=== PATIENT | female | born 1990 | race Caucasian/White ===

== ENCOUNTER → 2021-07-15 14:01 | Outpatient (CLI) | payer MEDICAID, SELFPAY ==
[2021-07-15 14:38] LABS: Absolute Lymphocyte Count 2.06 X10^3/uL (0.83-4.51); Absolute Neutrophil Count 9.7 X10^3/uL (2.0-7.7); Basophil# 0.05 X10^3/uL; Basophil% 0.4 % (0-1); Eosinophil# 0.16 X10^3/uL; Eosinophils% 1.3 % (0-5); Hematocrit 37.5 % (37-47); Hemoglobin 13.2 g/dL (12.0-15.0); Lymphocyte # 2.06 X10^3/ul (0.83-4.51); Lymphocyte % 16.2 % (19-41); Mean Corp Hgb Conc 35.2 g/dL (32-36); Mean Corpuscular Hgb 30.3 pg (27.0-32.0); Mean Corpuscular Volume 86.2 fL (81-99); Mean Platelet Vol. 10.9 fl (6.2-12.0); Monocyte# 0.67 X10^3/uL; Monocyte% 5.3 % (0-10); NRBC Flagged by Analyzer 0 % (0-5); Neutrophil # 9.74 X10^3/uL (2.7-7.7); Neutrophil % 76.4 % (47-70); Platelet Count 209 K/mm3 (150-450); RBC Distribution Width CV 12.2 % (11.6-14.6); RBC Distribution Width SD 38.4 fl (35.1-43.9); Red Blood Count 4.35 M/mm3 (4.2-5.4); White Blood Count 12.7 K/mm3 (4.4-11.0)
[2021-07-15 15:29] LABS: NATERA MAILED SPECIMEN
[2021-07-15 15:54] LABS: Amphetamine Urine VISTA NEGATIVE (<1000 ng/mL); Barbiturate Urine VISTA NEGATIVE (< 200 ng/mL); Benzodiazepine Urine VISTA NEGATIVE (< 200 ng/mL); Cocaine Urine VISTA NEGATIVE (< 300 ng/mL); Ecstacy Urine VISTA NEGATIVE (< 500 ng/mL); Methadone Urine VISTA NEGATIVE (< 300 ng/mL); PCP Urine VISTA NEGATIVE (< 25 ng/mL); THC Urine VISTA NEGATIVE (< 50 ng/mL); Vista UDS pH Range 5
[2021-07-15 16:06] LABS: HIV - WCH Non-Reactive (Nonreactive); Hepatitis B Surface Antigen Non-Reactive (Nonreactive); Hepatitis C Antibody Non-Reactive (Nonreactive); Syphilis Antibodies Non-reactive
[2021-07-19 13:07] LABS: Chlamydia By Nucleic Acid AMP Negative (Negative)
[2021-07-19 13:43] LABS: Gonococcus By Nucleic Acid AMP Negative (Negative)
[2021-07-23 14:26] LABS: HPV Reflexed? NOT INDICATED
== END ==
PROVIDERS: PCP Internal Medicine; Referring Provider Obstetrics & Gynecology; Visit Provider Obstetrics & Gynecology
DX: Z34.81 Encounter for supervision of other normal pregnancy, first trimester (principal); Z31.430 Encounter of female for testing for genetic disease carrier status for procreative management
CPT/HCPCS: 36415; 80307; 85025; 86703; 86762; 86780; 86803; 86850; 86900; 86901; 87086; 87088; 87340; 87491; 87591; 88175; G0145

== ENCOUNTER 2021-08-25 14:17 | Outpatient (CLI) | payer MEDICAID, SELFPAY | END 2021-08-25 23:59 | disposition short-term general hospital (02) | PROVIDERS: PCP Internal Medicine; Visit Provider Obstetrics & Gynecology | DX: O26.899 Other specified pregnancy related conditions, unspecified trimester (principal); N89.8 Other specified noninflammatory disorders of vagina; Z3A.00 Weeks of gestation of pregnancy not specified | CPT/HCPCS: 87070; 87086; 87088; 87205 ==

== ENCOUNTER 2021-09-08 17:13 | Outpatient (CLI) | payer MEDICAID, SELFPAY | END 2021-09-08 23:59 | disposition short-term general hospital (02) | LOC: LABSPEC 17:13 | PROVIDERS: PCP Internal Medicine; Visit Provider Obstetrics & Gynecology | DX: N89.8 Other specified noninflammatory disorders of vagina (principal) | CPT/HCPCS: 87070; 87205 ==

== ENCOUNTER 2021-09-23 12:48 | Outpatient (CLI) | payer MEDICAID, SELFPAY | END 2021-09-23 23:59 | disposition short-term general hospital (02) | LOC: LABSPEC 12:49 | PROVIDERS: PCP Internal Medicine; Visit Provider Nurse Practitioner Women's Health | DX: O23.40 Unspecified infection of urinary tract in pregnancy, unspecified trimester (principal) | CPT/HCPCS: 87086 ==

== ENCOUNTER 2021-10-27 12:27 | Outpatient (CLI) | payer MEDICAID, SELFPAY ==
[2021-10-27 13:43] LABS: Absolute Neutrophil Count 6.9 X10^3/uL (2.0-7.7); Basophil# 0.03 X10^3/uL; Basophil% 0.3 % (0-1); Eosinophils% 1.1 % (0-5); Hemoglobin 11.5 g/dL (12.0-15.0); Mean Corp Hgb Conc 33.8 g/dL (32-36); Mean Corpuscular Hgb 30.9 pg (27.0-32.0); Mean Corpuscular Volume 91.4 fL (81-99); Mean Platelet Vol. 11.3 fl (6.2-12.0); Monocyte# 0.78 X10^3/uL; Monocyte% 8.3 % (0-10); NRBC Flagged by Analyzer 0 % (0-5); Neutrophil % 73.9 % (47-70); Platelet Count 150 K/mm3 (150-450); RBC Distribution Width CV 12.3 % (11.6-14.6); RBC Distribution Width SD 41.1 fl (35.1-43.9); Red Blood Count 3.72 M/mm3 (4.2-5.4); White Blood Count 9.4 K/mm3 (4.4-11.0)
[2021-10-27 14:10] LABS: Glucose Challenge Gest 1H 50g 109 mg/dL (70-140)
== END 2021-10-27 23:59 | disposition home or self-care (01) ==
LOC: PAVLAB 12:28
PROVIDERS: PCP Internal Medicine; Referring Provider Nurse Practitioner Women's Health; Visit Provider Nurse Practitioner Women's Health
DX: Z34.92 Encounter for supervision of normal pregnancy, unspecified, second trimester (principal); Z13.1 Encounter for screening for diabetes mellitus
CPT/HCPCS: 36415; 82950; 85025

== ENCOUNTER 2021-12-08 09:00 | Outpatient (CLI) | payer MEDICAID, SELFPAY ==
--- NOTE | 2021-12-08 09:03 | US_ITS ---
STUDY: SECOND AND THIRD TRIMESTER OBSTETRICAL ULTRASOUND - LIMITED REASON FOR EXAM: Female, 31 years old. growth @ 32 and 36 weeks -- standing order PRIOR ULTRASOUND: Prior comparison studies are not available for review at this time. TECHNIQUE: Transabdominal TECHNICAL QUALITY: Adequate. FINDINGS: There is a single intrauterine fetus. The fetus is in a cephalic presentation. There is demonstrated cardiac activity with a heart rate of 140 bpm. There is a normal amniotic fluid volume. The largest amniotic fluid pocket measures 5.9 cm. The amniotic fluid index (FIGUEROA) is 17.4 cm. The placenta is fundal in location. There are Grade 1 placental changes. The cervix measures cm in length: 3.4. BIOMETRY: BPD: 79 mm: 31 weeks, 4 days HC: 296 mm: 32 weeks, 4 days AC: 283 mm: 32 weeks, 2 days FL: 61 mm: 31 weeks, 5 days CI: 76 FL/AC: 22 FL/BPD: 78 HC/AC: 1.05 age by current US: 32 weeks, 1 days. CHARITY by current US: 6.12.22. Estimated weight: 1918 grams, +/- 288 grams, 45 %. Age by LMP: 32 weeks, 0 days. CHARITY by LMP: 6.13.22. US/OB Limited With Biometrics IMPRESSION: There is a single live intrauterine with a heart rate of 140 bpm. age by current US: 32 weeks, 1 days. CHARITY by current US: 6.12.22. Estimated weight: 1918 grams, +/- 288 grams, 45 %. Electronically Signed: Andrés Headley MD at 20:43 EDT ,
== END 2021-12-08 23:59 | disposition home or self-care (01) ==
LOC: US 09:02
PROVIDERS: PCP Internal Medicine; Visit Provider Nurse Practitioner Women's Health
DX: O98.519 Other viral diseases complicating pregnancy, unspecified trimester (principal); U07.1 COVID-19; Z3A.00 Weeks of gestation of pregnancy not specified
CPT/HCPCS: 76816

== ENCOUNTER → 2022-01-05 | Outpatient (CLI) | payer MEDICAID, SELFPAY ==
--- NOTE | 2022-01-05 12:36 | US_ITS ---
STUDY: SECOND AND THIRD TRIMESTER OBSTETRICAL ULTRASOUND - LIMITED REASON FOR EXAM: Female, 31 years old. GROWTH PRIOR ULTRASOUND: 4.18.22. TECHNIQUE: Transabdominal TECHNICAL QUALITY: Adequate. FINDINGS: There is a single intrauterine fetus. The fetus is in a cephalic presentation. There is demonstrated cardiac activity with a heart rate of 144 bpm. There is a normal amniotic fluid volume. The largest amniotic fluid pocket measures 4.2 cm. The amniotic fluid index (FIGUEROA) is 12.7 cm. The placenta is fundal in location. There are Grade 2 placental changes. The cervix is obscured by overlying bowel gas and cannot be identified. . BIOMETRY: BPD: 82 mm: 33 weeks, 0 days HC: 307 mm: 34 weeks, 1 days AC: 341 mm: 37 weeks, 6 days FL: 66 mm: 34 weeks, 1 days CI: 77 FL/AC: 20 FL/BPD: 81 HC/AC: .9 age by current US: 34 weeks, 4 days. CHARITY by current US: 6.23.22. Estimated weight: 2889 grams, +/- 433 grams, 58 %. age by prior US: 36 weeks, 1 days. CHARITY by prior US: 6.2.22. Age by LMP: 36 weeks, 0 days. CHARITY by LMP: 6.13.22. US/OB Limited With Biometrics IMPRESSION: There is a single live intrauterine with a heart rate of 144 bpm. age by current US: 34 weeks, 4 days. CHARITY by current US: 6.23.22. Estimated weight: 2889 grams, +/- 433 grams, 58 %. Electronically Signed: Andrés Headley MD at 17:54 EDT ,
== END | disposition home or self-care (01) ==
LOC: US 12:32
PROVIDERS: PCP Internal Medicine; Visit Provider Nurse Practitioner Women's Health
DX: Z34.93 Encounter for supervision of normal pregnancy, unspecified, third trimester (principal)
CPT/HCPCS: 76816; 87081

== ENCOUNTER 2022-01-24 15:10 | Outpatient (CLI) | payer MEDICAID, SELFPAY ==
[2022-01-24 15:28] VITALS: BP 122/84; PULSE 96; TEMP 36.9
[2022-01-24 15:29] VITALS: BMI 26.9
--- NOTE | 2022-01-24 21:51 | OB.TRI.NOTE ---
HPI - General HPI Narrative SOPHIA ALLEN, is a 31 y/o @ 38 weeks who presents to L& with contractions. She denies loss of fluid, vaginal bleeding, or dec fm. PFSH PFSH Medical History (Updated 01/30/22 @ 14:[address] 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) Recurrent UTI Supervision of normal UTI in Home Medications multivitamin no.47-iron fum 27 mg-folate no.1 1 mg-dha 300 mg capsule 1 cap PO DAILY 07/15/21 [History Last Taken 01/24/22 10:00 1 cap] ibuprofen 800 mg PO Q8H PRN 7 Days #30 tab 01/25/22 [Rx Last Taken Unknown] sertraline [Zoloft] 50 mg PO DAILY 01/25/22 [History Last Taken 01/24/22] Allergy/AdvReac Type Severity Reaction Status Date / Time No Known Allergies Allergy Verified 01/21/22 10:56 Family History Grandmother Cancer Mother Thyroid disorder Surgical History H/O breast augmentation H/O lithotripsy Social History adopted: No current occupational status: employed current occupation: [employer] pets and animals: Yes Smoking Status: Never smoker second hand exposure: No alcohol intake: current details: not while substance use type: does not use seatbelt use: always do you feel safe at home: Yes additional social history: BF- Tristan History 2 Elective abortions 1 Hx Para 0 Spontaneous abortions Hx # Term Pregnancies Ectopic pregnancies Hx # Pregnancies Multiple births # of living children 1 Past Pregnancies Del. Date Name GA/Weeks Outcome Route Bth Weight Infant Gen Labor Lgth Anesthesia Del Locatn Provider FOB 06/05/22 Daryl 38 live - full term vacuum Male epidural [facility] Jeanette Kumar FOB not involved/Tristan Delivery Date: 01/25/22 1st degree laceration, Padmini Wilburn Constitutional Constitutional: Reports systems reviewed and no addt'l complaints, except as documented Gastrointestinal Gastrointestinal: Denies bloating, constipation, cramping, diarrhea, nausea or vomiting Genitourinary Genitourinary: Reports other Details: Denies vaginal odor, vaginal bleeding, or vaginal discharge ; Denies difficulty urinating or flank pain Physical Exam HEENT normocephalic Resp normal respiratory effort and normal air movement no CVA tenderness Extremity normal to inspection General Extremity: edema bilateral (trace ) NST FHR Rate Baby A Baseline: 150 Variability:: Moderate Accelerations:: 15 x 15 Decelerations:: None NST Reactive:: Yes FHR Category:: Category I Assessment & Plan (1) False labor after 37 completed weeks of gestation: PLAN: cx unchanged after monitoring x 1 hr dc to home with labor precautions. return to office this week Charges/Coding Multi Select Codes Visit Charges Office Visit/Consults: 75448 OV L3 Est Urinary/Genital Urinary/Genital CPT Codes: 34933-60 non-stress test Interp
== END 2022-01-24 16:55 | disposition home or self-care (01) ==
LOC: WPOUT 15:20 → WP 15:21
PROVIDERS: PCP Internal Medicine; Visit Provider Obstetrics & Gynecology
DX: O47.1 False labor at or after 37 completed weeks of gestation (principal); Z3A.38 38 weeks gestation of pregnancy; O99.343 Other mental disorders complicating pregnancy, third trimester; F41.9 Anxiety disorder, unspecified; F32.A Depression, unspecified; Z86.16 Personal history of COVID-19; O99.613 Diseases of the digestive system complicating pregnancy, third trimester; K90.0 Celiac disease; Z87.440 Personal history of urinary (tract) infections; Z87.442 Personal history of urinary calculi; Z79.899 Other long term (current) drug therapy
CPT/HCPCS: 59050 ×2; G0378 ×2; 59025; 99218

== ENCOUNTER 2022-01-25 02:38 | Inpatient (IN) | payer MEDICAID, SELFPAY ==
[2022-01-25] VITALS (45 sets, daily range): BP systolic 99–133; BP diastolic 55–85; PULSE 59–91; RESP 15–18; TEMP 36.1–36.9; O2SAT 95–100; BMI 27.1
[2022-01-25 02:35] LABS: ROM Internal Control Test YES-OK TO RESULT pt. (Internal QC)
[2022-01-25 02:36] LABS: ROM Patient Test POSITIVE (Negative)
[2022-01-25] MEDS: Lactated Ringers 1,000 ML 50 ML IV (03:05)
[2022-01-25] MEDS: Lactated Ringers 500 ML 999 ML IV ×2 (03:20→09:11)
[2022-01-25 03:28] LABS: Absolute Lymphocyte Count 2.34 X10^3/uL (0.83-4.51); Basophil# 0.04 X10^3/uL; Basophil% 0.4 % (0-1); Eosinophil# 0.09 X10^3/uL; Eosinophils% 0.8 % (0-5); Hematocrit 35.7 % (37-47); Hemoglobin 11.5 g/dL (12.0-15.0); Lymphocyte # 2.34 X10^3/ul (0.83-4.51); Lymphocyte % 20.6 % (19-41); Mean Corp Hgb Conc 32.2 g/dL (32-36); Mean Corpuscular Hgb 28.3 pg (27.0-32.0); Mean Corpuscular Volume 87.9 fL (81-99); Mean Platelet Vol. 13.8 fl (6.2-12.0); Monocyte# 0.83 X10^3/uL; Monocyte% 7.3 % (0-10); NRBC Flagged by Analyzer 0 % (0-5); Neutrophil # 8.01 X10^3/uL (2.7-7.7); Neutrophil % 70.3 % (47-70); Platelet Count 116 K/mm3 (150-450); RBC Distribution Width CV 13.2 % (11.6-14.6); RBC Distribution Width SD 42.3 fl (35.1-43.9); Red Blood Count 4.06 M/mm3 (4.2-5.4); White Blood Count 11.4 K/mm3 (4.4-11.0)
[2022-01-25] MEDS: fentaNYL-bupivacaine (epidural) 100 ML BAG EPIDURAL ×2 (04:31→10:04)
[2022-01-25] MEDS: Lactated Ringers 1,000 ML 200 ML IV (06:45)
--- NOTE | 2022-01-25 08:45 | HP.PCM.OB_ITS ---
HPI - General General Date of Admission: 01/25/22 HPI Narrative SOPHIA ALLEN, is a 31 y/o @ 38 weeks 6 days who presents to L&D with ROM around 1 am. she states that her water broke at 12:00 last night. She is currently comfortable with an epidural and completely dilated. She has started pushing with the nurse. 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) Recurrent UTI Home Medications multivitamin no.47-iron fum 27 mg-folate no.1 1 mg-dha 300 mg capsule 1 cap PO DAILY 07/15/21 [History Last Taken 01/24/22 10:00 1 cap] aspirin 81 mg chewable tablet 81 mg PO DAILY 09/08/21 [History Last Taken 01/24/22] ondansetron HCl 4 mg tablet 4 mg PO Q8H PRN #30 tab 12/24/21 [Rx Last Taken Unknown] sertraline [Zoloft] 50 mg PO DAILY 01/25/22 [History Last Taken 01/24/22] Allergy/AdvReac Type Severity Reaction Status Date / Time No Known Allergies Allergy Verified 01/21/22 10:56 Family History Grandmother Cancer Mother Thyroid disorder Surgical History H/O breast augmentation H/O lithotripsy Social History adopted: No current occupational status: employed current occupation: [employer] pets and animals: Yes Smoking Status: Never smoker second hand exposure: No alcohol intake: current details: not while substance use type: does not use seatbelt use: always do you feel safe at home: Yes additional social history: [facility] [place] History 2 Elective abortions 1 Hx Para 0 Spontaneous abortions Hx # Term Pregnancies Ectopic pregnancies Hx # Pregnancies Multiple births # of living children 0 Visit Details Expected Delivery Route/Plan Labor Preferences- CB/BF classes: scheduled labor support person: Monica(mom) labor intervention preferences: [] pain management options preferred: limited intervention but epidural ok cut cord/dad catch: maybe : yes PP control planned: discussed discussed possible routes of delivery and associated risks: [] special requests: [] Plans Covid status: positive in the beginning of . counseled regarding risk of covid in vs vaccination and declined vaccination Flu vaccine: declined. Tdap vaccine: declines Rhogam: NA LARC form signed: yes movement and labor precautions reviewed. Problem list reviewed and updated with the most current plan of care details and appropriate orders placed. Relevant counseling for the gestational age provided. Continue routine care and follow up unless otherwise noted in visit notes/problem list details OB Flowsheet Initial Weight: 112 lb Date -?-?-?--?-?-?-?-?-?-?-?-?- EGA Weight BP Urine Prot -?-?-?-?-?-?-?-?-?-?-?-?- Glucose FHR FuHt Pres Dilation -?-?-?-?-?-?-?-?-?-?-?-?- Effaced St Visit Note 07/15/21 -?-?-?-?-?-?-?-?-?-?-?-?- 11w 1d 118 lb (+6 lb) 122/82 -?-?-?-?-?-?-?-?-?-?-?-?- -?-?-?-?-?-?-?-?-?-?-?-?- SM- CRL cons wit h LMP 08/11/21 -?-?-?-?-?-?-?-?-?-?-?-?- 15w 0d 121 lb 6 oz (+9 lb 6 oz) 110/80 Negative -?-?-?-?-?-?-?-?-?-?-?-?- Negative 162 -?-?-?-?-?-?-?-?-?-?-?-?- MH-had light spo tting X 1 2 wk ago. None since. Feeling more depressed, wants to sleep all the time. Rx zoloft sent. Declines counseling. Lives with mom and aware of how she is feeling. MFM US ordered. 08/25/21 -?-?-?-?-?-?-?-?-?-?-?-?- 17w 0d 122 lb (+10 lb) 102/84 -?-?-?-?-?-?-?-?-?-?-?-?- Negative 150 -?-?-?-?-?-?-?-?-?-?-?-?- SM- some crampin g and occasional spotting. SM- some cramping and occasi onal spotting. on exam visible yeast and bv suspected 09/08/21 -?-?-?-?-?-?-?-?-?-?-?-?- 19w 0d 126 lb (+14 lb) 102/76 Negative -?-?-?-?-?-?-?-?-?-?-?-?- Negative 145 19 -?-?-?-?-?-?-?-?-?-?-?-?- SM- no vb lof so me discarge checked for yeast infection today 09/23/21 -?-?-?-?-?-?-?-?-?-?-?-?- 21w 1d 127 lb 4 oz (+15 lb 4 oz) 2+ -?-?-?-?-?-?-?-?-?-?-?-?- Negative -?-?-?-?-?-?-?-?-?-?-?-?- 10/06/21 -?-?-?-?-?-?-?-?-?-?-?-?- 23w 0d 129 lb 6 oz (+17 lb 6 oz) 108/70 Negative -?-?-?-?-?-?-?-?-?-?-?-?- Negative 143 -?-?-?-?-?-?-?-?-?-?-?-?- -No VB, LOF. Seen for hematuria 09/23. Thinks passed stone 09/26 and feels fine since and urine clear. Urine culture on 09/23 was negative. echo is 10/16. Growth US 32 and 36 wk at [facility] ordered. 28 wk labs ordered. Anxiety stable 11/03/21 -?-?-?-?-?-?-?-?-?-?-?-?- 27w 0d 137 lb 4 oz (+25 lb 4 oz) 120/80 Negative -?-?-?-?-?-?-?-?-?-?-?-?- Negative 140 27 -?-?-?-?-?-?-?-?-?-?-?-?- - no vb lof go od fm no reuglar ctx 11/26/21 -?-?-?-?-?-?-?-?-?-?-?-?- 30w 2d 139 lb 6 oz (+27 lb 6 oz) 110/70 Negative -?-?-?-?-?-?-?-?-?-?-?-?- Negative 148 29 -?-?-?-?-?-?-?-?-?-?-?-?- -No VB, LOF. G ood FM. FOB no longer involved. She is doing ok with that. Her mom is very supportive. 12/08/21 -?-?-?-?-?-?-?-?-?-?-?-?- 32w 0d 143 lb 8 oz (+31 lb 8 oz) 112/64 Negative -?-?-?-?-?-?-?-?-?-?-?-?- Negative 140 32 -?-?-?-?-?-?-?-?-?-?-?-?- SM- no vb lof go od fm no regular ctx 12/24/21 -?-?-?-?-?-?-?-?-?-?-?-?- 34w 2d 144 lb 4 oz (+32 lb 4 oz) 130/88 Negative -?-?-?-?-?-?-?-?-?-?-?-?- Negative 143 34 Cephalic -?-?-?-?-?-?-?-?-?-?-?-?- JV- pt complains of period like cramping and nausea. cx checked and is closed. PTL precautions discussed. next growth scan scheduled for 01/05. She had one 2 weeks ago showing 45th%. 01/05/22 -?-?-?-?-?-?-?-?-?-?-?-?- 36w 0d 146 lb (+34 lb) 106/72 Negative -?-?-?-?-?-?-?-?-?-?-?-?- Negative 140 36 Cephalic 1 -?-?-?-?-?-?-?-?-?-?-?-?- 60 -2 SM- no vb lof good fm no reuglar ctx gbs done us today 01/14/22 -?-?-?-?-?-?-?-?-?-?-?-?- 37w 2d 149 lb 8 oz (+37 lb 8 oz) 127/83 Negative -?-?-?-?-?-?-?-?--?-?-?-?- Negative 147 37 Cephalic 2 -?-?-?-?-?-?-?-?-?-?-?-?- 70 -2 JV- no lof , vaginal bleeding, or dec fm. labor precautions discussed. GBS negative. 01/21/22 -?-?-?-?-?-?-?-?-?-?-?-?- 38w 2d 153 lb (+41 lb) 120/86 Negative -?-?-?-?-?-?-?-?-?-?-?-?- Negative 145 38 Cephalic 2 -?-?-?-?-?-?-?-?-?-?-?-?- 80 -2 JV- no lof , vaginal bleeding, or dec fm. pt is becoming frustrated and tired of being she is inquiring about IOL 01/25/22 -?-?-?-?-?-?-?-?-?-?-?-?- 38w 6d 153 lb (+41 lb) 129/58 133/85 115/81 114/74 105/66 99/67 106/72 110/72 106/71 112/69 103/68 105/69 101/62 104/70 115/58 -?-?-?-?-?-?-?-?-?-?-?-?- -?-?-?-?-?-?-?-?-?-?-?-?- ROS Constitutional Constitutional: Denies change in weight, fatigue, fever(s), headache(s), poor appetite or weakness Eyes Eyes: Denies blurry vision, change in vision, seeing flashes or spots in vision ENT HEENT: Denies dizziness, headache(s), loss taste/smell or sore throat Cardiovascular Cardiovascular: Denies chest pain, dizziness, dyspnea, irregular heart rhythm, leg edema, palpitations, rapid heart rate or vomiting Respiratory/Chest Respiratory/Chest: Denies chest tightness, cough, dyspnea or breast pain Gastrointestinal Gastrointestinal: Denies abdominal pain, anorexia, constipation, cramping, diarrhea, hemorrhoids, vomiting or weight changes Genitourinary Genitourinary: Denies dysuria, flank pain, genital lesions, genital pain, urinary frequency or urinary urgency Musculoskeletal Musculoskeletal: Denies back pain, difficulty walking, joint pain, limited range of motion, muscle cramps or numbness Integumentary Integumentary: Denies lesions or unusual bruising Neurologic Neurologic: Denies abnormal movements, abnormal speech, dizziness, numbness, seizure-like activity or syncope Psychiatric Psychiatric: Denies anxiety, behavioral changes, change in appetite, change in libido, cognitive impairment, confusion, depression, difficulty concentrating, hallucinations or suicidal thoughts Endocrine Endocrinology: Denies excessive sweating, polydipsia or polyuria Hematologic/Lymphatic Hematologic/Lymphatic: Denies easy bleeding, easy bruising or lymphadenopathy Allergic/Immunologic Allergic/Immunologic: Denies itchy eyes, lip swelling, seasonal rhinorrhea, rhinitis, throat swelling, tongue swelling, eczemia, wheezing or asthma Vital Signs Vital Signs Vital Signs: 01/25/22 01:43 01/25/22 01:45 01/25/22 01:51 Temperature 97.2 F L Temperature Source Temporal Pulse Rate 87 79 Blood Pressure 129/58 H BP Systolic 129 BP Diastolic 58 Pulse Ox 98 01/25/22 03:15 01/25/22 04:09 01/25/22 04:14 Temperature Temperature Source Pulse Rate 64 73 75 Blood Pressure 133/85 H BP Systolic 133 BP Diastolic 85 Pulse Ox 99 100 01/25/22 04:15 01/25/22 04:19 01/25/22 04:20 Temperature Temperature Source Pulse Rate 71 75 Blood Pressure 115/81 H 114/74 BP Systolic 115 114 BP Diastolic 81 74 Pulse Ox 100 01/25/22 04:24 01/25/22 04:29 01/25/22 04:30 Temperature Temperature Source Pulse Rate 70 74 72 Blood Pressure 105/66 BP Systolic 105 BP Diastolic 66 Pulse Ox 99 99 01/25/22 04:31 01/25/22 04:34 01/25/22 04:39 Temperature Temperature Source Pulse Rate 82 75 78 Blood Pressure 99/67 106/72 BP Systolic 99 106 BP Diastolic 67 72 Pulse Ox 99 99 01/25/22 04:41 01/25/22 04:44 01/25/22 04:49 Temperature Temperature Source Pulse Rate 67 73 68 Blood Pressure 110/72 106/71 BP Systolic 110 106 BP Diastolic 72 71 Pulse Ox 100 100 01/25/22 04:50 01/25/22 04:54 01/25/22 04:59 Temperature Temperature Source Pulse Rate 65 65 59 L Blood Pressure 112/69 103/68 105/69 BP Systolic 112 103 105 BP Diastolic 69 68 69 Pulse Ox 100 100 01/25/22 05:35 01/25/22 07:17 01/25/22 07:30 Temperature 97.4 F L Temperature Source Temporal Pulse Rate 66 68 Blood Pressure 101/62 104/70 BP Systolic 101 104 BP Diastolic 62 70 Pulse Ox 99 01/25/22 07:31 01/25/22 08:22 Temperature 98.2 F Temperature Source Temporal Pulse Rate 76 85 Blood Pressure 115/58 L BP Systolic 115 BP Diastolic 58 Pulse Ox 99 95 Weight Weight: 153 lb Body Mass Index (BMI) 27.1 Physical Exam Const alert, oriented x3, no apparent distress and healthy appearing General Appearance: cooperative; Negative for anxious HEENT normocephalic Face and Sinus: normal facial exam Eyes EOMs intact bilaterally and no scleral icterus General Eye: normal appearance of both eyes Neck full ROM and supple Lymph Lymphatic: no lymphadenopathy noted Chest Chest: abnormal inspection of the chest Resp normal respiratory effort Effort and Inspection: able to speak in complete sentences Cardio regular rate GI soft to palpation and non-tender Inspection: gravid Palpation: soft; Negative for tender external exam normal Amniotic Fluid: ROM+plus positive + Back/Spine no CVA tenderness Extremity normal to inspection, full ROM and no clubbing, cyanosis or edema General Extremity: Negative for calf tenderness or edema Skin Lesions: no lesions Rashes: no rashes Psych mental status grossly normal Labs Labs Labs: Blood Type O POSITIVE Antibody Screen NEGATIVE Hct 35.7 % (37-47) L Hgb 11.5 g/dL (12.0-15.0) L Obstetrics US Syphilis Total Ab Non-reactive Hep Bs Antigen Non-Reactive (Nonreactive) Chlamydia DNA (MONIKA) Negative (Negative) Neisseria gonorrhoeae DNA (MONIKA) Negative (Negative) HIV 1&2 Antibody Non-Reactive (Nonreactive) Glucose 1 Hr 50 gm 109 mg/dL (70-140) Assessment & Plan (1) COVID-19 affecting , antepartum: COMMENT: needs baby ASA and growth US 32 and 36wk (growth u/s WNL 12/09/21) 01/05 nl growth (2) Anxiety and depression: COMMENT: previously on paxil; 08/11/21 start zoloft; 10/06 stable. (3) : QUALIFIERS: Weeks of gestation: 38 weeks Qualified Code(s): Z3A. 38 - 38 weeks gestation of COMMENT: anatomy nl, carrier- neg . NIPT low risk. GBS neg (4) Supervision of normal : QUALIFIERS: Normal : normal first Trimester: first trimester Qualified Code(s): Z34.01 - Encounter for supervision of normal first , first trimester COMMENT: PRR , surprise, CHARITY: 02/02/22 FOB:not involved/Tristan. Mom Candida (5) UTI in : QUALIFIERS: Trimester: second trimester Qualified Code(s): O23.42 - Unspecified infection of urinary tract in , second trimester COMMENT: keflex ordered. Treated again for UTI on 09/23/21:neg urine culture. Thinks passed stone 3 days later and fine since and urine clear. (6) echogenic intracardiac focus on ultrasound: COMMENT: echo with MFM 10/16/21. increased nuchal fold is present, nl echo (7) Low grade squamous intraepithelial lesion (LGSIL): COMMENT: 2016 (8) DONTA I (cervical intraepithelial neoplasia I): COMMENT: 2015 (9) Celiac disease: PLAN: Patient presents IAL, plan expectant management for , pitocin Pain management: plans epidural. GBS negative. Management of any complications: had covid in , managed with baby asa and growth scans. thickened nuchal fold noted, normal NIPT and echo. I have reviewed the [facility] and made any clinically relevant updates.
--- NOTE | 2022-01-25 08:50 | OB.TRI.HP_ITS ---
HPI - General HPI Narrative LATE ENTRY: date of served 01/24/22 SOPHIA ALLEN, is a 31y/o @ 38 weeks 5 days who presents to L&D with painful contractions. No lof, vaginal bleeding, or dec fm. Maternal Data Information CHARITY Calculator Estimated Delivery Date Method Current WG Current Estimate 02/02/22 LMP (Certain) 38w 6d Other Estimates 01/31/22 Ultrasound #1 39w 1d PFSH PFSH Medical History (Updated 01/25/22 @ 08:[address] 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 lesion (LGSIL) Recurrent UTI Home Medications multivitamin no.47-iron fum 27 mg-folate no.1 1 mg-dha 300 mg capsule 1 cap PO DAILY 07/15/21 [History Last Taken 01/24/22 10:00 1 cap] aspirin 81 mg chewable tablet 81 mg PO DAILY 09/08/21 [History Last Taken 01/24/22] ondansetron HCl 4 mg tablet 4 mg PO Q8H PRN #30 tab 12/24/21 [Rx Last Taken Unknown] sertraline [Zoloft] 50 mg PO DAILY 01/25/22 [History Last Taken 01/24/22] Allergy/AdvReac Type Severity Reaction Status Date / Time No Known Allergies Allergy Verified 01/21/22 10:56 Family History Grandmother Cancer Mother Thyroid disorder Surgical History H/O breast augmentation H/O lithotripsy Social History adopted: No current occupational status: employed current occupation: [employer] pets and animals: Yes Smoking Status: Never smoker second hand exposure: No alcohol intake: current details: not while substance use type: does not use seatbelt use: always do you feel safe at home: Yes additional social history: BF- Tristan History 2 Elective abortions 1 Hx Para 0 Spontaneous abortions Hx # Term Pregnancies Ectopic pregnancies Hx # Pregnancies Multiple births # of living children 0 Visit Details Expected Delivery Route/Plan Labor Preferences- CB/BF classes: scheduled labor support person: Monica(mom) labor intervention preferences: [] pain management options preferred: limited intervention but epidural ok cut cord/dad catch: maybe : yes PP control planned: discussed discussed possible routes of delivery and associated risks: [] special requests: [] Plans Covid status: positive in the beginning of . counseled regarding risk of covid in vs vaccination and declined vaccination Flu vaccine: declined. Tdap vaccine: declines Rhogam: NA LARC form signed: yes movement and labor precautions reviewed. Problem list reviewed and updated with the most current plan of care details and appropriate orders placed. Relevant counseling for the gestational age provided. Continue routine care and follow up unless otherwise noted in visit notes/problem list details OB Flowsheet Initial Weight: 112 lb Date -?-?-?-?-?-?-?-?-?-?-?-?- EGA Weight BP Urine Prot -?-?-?-?-?-?-?-?-?-?-?-?- Glucose FHR FuHt Pres Dilation -?-?-?-?--?-?-?-?-?-?-?-?- Effaced St Visit Note 07/15/21 -?-?-?-?-?-?-?-?-?-?-?-?- 11w 1d 118 lb (+6 lb) 122/82 -?-?-?-?-?-?-?-?-?-?-?-?- -?-?-?-?-?-?-?-?-?-?-?-?- SM- CRL cons wit h LMP 08/11/21 -?-?-?-?-?-?-?-?-?-?-?-?- 15w 0d 121 lb 6 oz (+9 lb 6 oz) 110/80 Negative -?-?-?-?-?-?-?-?-?-?-?-?- Negative 162 -?-?-?-?-?-?-?-?-?-?-?-?- -had light spo tting X 1 2 wk ago. None since. Feeling more depressed, wants to sleep all the time. Rx zoloft sent. Declines counseling. Lives with mom and aware of how she is feeling. MFM US ordered. 08/25/21 -?-?-?-?-?-?-?-?-?-?-?-?- 17w 0d 122 lb (+10 lb) 102/84 -?-?-?-?-?-?-?-?-?-?-?-?- Negative 150 -?-?-?-?-?-?-?-?-?-?-?-?- SM- some crampin g and occasional spotting. SM- some cramping and occasi onal spotting. on exam visible yeast and bv suspected 09/08/21 -?-?-?-?-?-?-?-?-?-?-?-?- 19w 0d 126 lb (+14 lb) 102/76 Negative -?-?-?-?-?-?-?-?-?-?-?-?- Negative 145 19 -?-?-?-?-?-?-?-?-?-?-?-?- SM- no vb lof so me discarge checked for yeast infection today 09/23/21 -?-?-?-?-?-?-?-?-?-?-?-?- 21w 1d 127 lb 4 oz (+15 lb 4 oz) 2+ -?-?-?-?-?-?-?-?-?-?-?-?- Negative -?-?-?-?-?-?-?-?-?-?-?-?- 10/06/21 -?-?-?-?-?-?-?-?-?-?-?-?- 23w 0d 129 lb 6 oz (+17 lb 6 oz) 108/70 Negative -?-?-?-?-?-?-?-?-?-?-?-?- Negative 143 -?-?-?-?-?-?-?-?-?-?-?-?- MH-No VB, LOF. Seen for hematuria 09/23. Thinks passed stone 09/26 and feels fine since and urine clear. Urine culture on 09/23 was negative. echo is 10/16. Growth US 32 and 36 wk at M ordered. 28 wk labs ordered. Anxiety stable 11/03/21 -?-?-?-?-?-?-?-?-?-?-?-?- 27w 0d 137 lb 4 oz (+25 lb 4 oz) 120/80 Negative -?-?-?-?-?-?-?-?-?-?-?-?- Negative 140 27 -?-?-?-?-?-?-?-?-?-?-?-?- Sm- no vb lof go od fm no reuglar ctx 11/26/21 -?-?-?-?-?-?-?-?-?-?-?-?- 30w 2d 139 lb 6 oz (+27 lb 6 oz) 110/70 Negative -?-?-?-?-?-?-?-?-?-?-?-?- Negative 148 29 -?-?-?-?-?-?-?-?-?-?-?-?- MH-No VB, LOF. G ood FM. FOB no longer involved. She is doing ok with that. Her mom is very supportive. 12/08/21 -?-?-?-?-?-?-?-?-?-?-?-?- 32w 0d 143 lb 8 oz (+31 lb 8 oz) 112/64 Negative -?-?-?-?-?-?-?-?-?-?-?-?- Negative 140 32 -?-?-?-?-?-?-?-?-?-?-?-?- SM- no vb lof go od fm no regular ctx 12/24/21 -?-?-?-?-?-?-?-?-?-?-?-?- 34w 2d 144 lb 4 oz (+32 lb 4 oz) 130/88 Negative -?-?-?-?-?-?-?-?-?-?-?-?- Negative 143 34 Cephalic -?-?-?-?-?-?-?-?-?-?-?-?- JV- pt complains of period like cramping and nausea. cx checked and is closed. PTL precautions discussed. next growth scan scheduled for 01/05. She had one 2 weeks ago showing 45th%. 01/05/22 -?-?--?-?-?-?-?-?-?-?-?-?- 36w 0d 146 lb (+34 lb) 106/72 Negative -?-?-?-?-?-?-?-?-?-?-?-?- Negative 140 36 Cephalic 1 -?-?-?-?-?-?-?-?-?-?--?-?- 60 -2 SM- no vb lof good fm no reuglar ctx gbs done us today 01/14/22 -?-?-?-?-?-?-?-?-?-?-?-?- 37w 2d 149 lb 8 oz (+37 lb 8 oz) 127/83 Negative -?-?-?-?-?-?-?-?-?-?-?-?- Negative 147 37 Cephalic 2 -?-?-?-?-?-?-?-?-?-?-?-?- 70 -2 JV- no lof , vaginal bleeding, or dec fm. labor precautions discussed. GBS negative. 01/21/22 -?-?-?-?-?-?-?-?-?-?-?-?- 38w 2d 153 lb (+41 lb) 120/86 Negative -?-?-?-?-?-?-?-?-?-?-?-?- Negative 145 38 Cephalic 2 -?-?-?-?-?-?-?-?-?-?-?-?- 80 -2 JV- no lof , vaginal bleeding, or dec fm. pt is becoming frustrated and tired of being she is inquiring about IOL 01/25/22 -?-?-?-?-?-?-?-?-?-?-?-?- 38w 6d 153 lb (+41 lb) 129/58 133/85 115/81 114/74 105/66 99/67 106/72 110/72 106/71 112/69 103/68 105/69 101/62 104/70 115/58 -?-?-?-?-?-?-?-?-?-?-?-?- -?-?-?-?-?-?-?-?-?-?-?-?- ROS Constitutional Constitutional: Reports systems reviewed and no addt'l complaints, except as documented Gastrointestinal Gastrointestinal: Denies bloating, constipation, cramping, diarrhea, nausea or vomiting Genitourinary Genitourinary: Reports other Details: Denies vaginal odor, vaginal bleeding, or vaginal discharge ; Denies difficulty urinating or flank pain Physical Exam HEENT normocephalic Resp normal respiratory effort and normal air movement no CVA tenderness Extremity normal to inspection General Extremity: edema bilateral (trace ) NST FHR Rate Baby A Baseline: 140 Variability:: Moderate Accelerations:: 15 x 15 Decelerations:: None NST Reactive:: Yes FHR Category:: Category I Assessment & Plan (1) COVID-19 affecting , antepartum: COMMENT: needs baby ASA and growth US 32 and 36wk (growth u/s WNL 12/09/21) /16 nl growth (2) Anxiety and depression: COMMENT: previously on paxil; 08/11/21 start zoloft; 10/06 stable. (3) : QUALIFIERS: Weeks of gestation: 38 weeks Qualified Code(s): Z3A.38 - 38 weeks gestation of COMMENT: anatomy nl, carrier- neg . NIPT low risk. GBS neg (4) Supervision of normal : QUALIFIERS: Normal : normal first Trimester: first trimester Qualified Code(s): Z34.01 - Encounter for supervision of normal first , first trimester COMMENT: PRR , surprise, CHARITY: 02/02/22 FOB:not involved/Tristan. Mom Candida (5) UTI in : QUALIFIERS: Trimester: second trimester Qualified Code(s): O23.42 - Unspecified infection of urinary tract in , second trimester COMMENT: keflex ordered. Treated again for UTI on 09/23/21:neg urine culture. Thinks passed stone 3 days later and fine since and urine clear. (6) echogenic intracardiac focus on ultrasound: COMMENT: echo with MFM 10/16/21. increased nuchal fold is present, nl echo (7) Low grade squamous intraepithelial lesion (LGSIL): COMMENT: 2015 (8) DONTA I (cervical intraepithelial neoplasia I): COMMENT: 2014 (9) Celiac disease: (10) False labor after 37 completed weeks of gestation: PLAN: labor precautions discussed, rto when contractions 5 min apart, or if experiences loss of fluid, vaginal bleeding ,or dec fm. DATE OF SERVICE FOR THIS NOTE: 01/24/2022 Charges/Coding Multi Select Codes Visit Charges Office Visit/Consults: 28752 OV L3 Est Urinary/Genital Urinary/Genital CPT Codes: 26304-76 non-stress test Interp
[2022-01-25] MEDS: Oxytocin 30 units/NS 500 ml 30 UNITS/500 ML IV.SOLN IV (09:01)
[2022-01-25] MEDS: Oxytocin 30 units/NS 500 ml 30 UNITS/500 ML IV.SOLN 334 UNITS IV (10:31)
--- NOTE | 2022-01-25 10:44 | EX.PCM.OBRPT ---
Assessment & Plan (1) COVID-19 affecting , antepartum: COMMENT: needs baby ASA and growth US 32 and 36wk (growth u/s WNL 12/09/21) 5/16 nl growth (2) Anxiety and depression: COMMENT: previously on paxil; 08/11/21 start zoloft; 10/06 stable. (3) : QUALIFIERS: Weeks of gestation: 38 weeks Qualified Code(s): Z3A.38 - 38 weeks gestation of COMMENT: anatomy nl, carrier- neg . NIPT low risk. GBS neg (4) Supervision of normal : QUALIFIERS: Normal : normal first Trimester: first trimester Qualified Code(s): Z34.01 - Encounter for supervision of normal first , first trimester COMMENT: PRR , surprise, CHARITY: 02/02/22 FOB:not involved/Tristan. Mom Candida (5) UTI in : QUALIFIERS: Trimester: second trimester Qualified Code(s): O23.42 - Unspecified infection of urinary tract in , second trimester COMMENT: keflex ordered. Treated again for UTI on 09/23/21:neg urine culture. Thinks passed stone 3 days later and fine since and urine clear. (6) echogenic intracardiac focus on ultrasound: COMMENT: echo with MFM 10/16/21. increased nuchal fold is present, nl echo (7) Low grade squamous intraepithelial lesion (LGSIL): COMMENT: 2015 (8) DONTA I (cervical intraepithelial neoplasia I): COMMENT: 2014 (9) Celiac disease: Maternal Data Information CHARITY Calculator Estimated Delivery Date Method Current WG Current Estimate 02/02/22 LMP (Certain) 38w 6d Other Estimates 01/31/22 Ultrasound #1 39w 1d Vaginal Delivery Maternal Presentation Maternal Presentation: Active Labor Type of Induction: Pitocin Operative Information Date of Procedure: 01/25/22 Pre-Operative Diagnosis: 38 weeks 6 days active labor, maternal exhaustion Post-Operative Diagnosis: 38 weeks 6 days active labor, maternal exhaustion Surgery / Procedure Performed: Vacuum Assisted Vaginal Delivery Type of Anesthesia: Epidural Estimated Blood Loss: 300cc Findings Description of Procedure: Patient began pushing at approximately 0800 and after 2 hours she brought the station to +3 and complained of fatigue. She consented to a vacuum extraction. The kiwi vacuum device was placed anterior to the posterior fontanelle and activated to the top of the green zone. With one pull the delivered the head in the ABDI presentation. The head was delivered atraumatically. The anterior and posterior shoulders delivered without complication followed by the rest of the and the infant was placed on the maternal abdomen. Delayed cord clamping was employed for approximately 60 seconds. Cord was clamped and cut and gentle traction was applied to the cord and the placenta delivered spontaneously immediately following it was noted to be intact with three-vessel cord. The perineum and vagina were inspected and noted to have a 1st degree perineal laceration. EBL was 300cc. Patient and infant tolerated delivery well. Presentation: ABDI Amniotic Membrane Rupture Type: Spontaneous Time of Membrane Rupture: 12:00 am on 01/25/22 Amniotic Fluid Description: Clear Placental Delivery Description: Spontaneous Placenta Disposition: patient wants to take home Cord Vessel Description: 3 Vessels Cord Entanglement: None Infant A Gender: Male (1 minute): 7 (5 minute): 9 Delayed Cord Clamping: Yes Post Vaginal Delivery Medications Given After Delivery: IV Pitocin Episiotomy Description: None Laceration: 1st degree Complication Complications: None
--- NOTE | 2022-01-25 10:48 | PCM.DC ---
Discharge Instructions Diet Discharge Diet: No restrictions Activity Discharge Activity: Return to Normal Activity, May Not Drive (while taking narcotic pain medications.) and May Shower May resume sexual activity in: 4-6 weeks Dressing / Incision Call your doctor if your incision/area has: Continuous Slow Oozing, Sudden Increased Bleeding, Increased Pain/ Swelling, Increased Redness and Foul Smelling Discharge Follow Up Care Please Follow Up With: Jeanette Kumar DO When: Call [phone] to make an appointment with your doctor in 6 weeks. If you had elevated blood pressure or 4th degree laceration, you will need to be seen in 2 weeks. Test Results: Test results from this visit will be discussed in further detail at your follow-up appointment, if applicable. Discharge Plan Admission Admit Date/Time: 01/25/22 02:38 Primary Reason for Your Visit: vacuume assisted vaginal delivery Attending Provider: Jeanette Kumar Primary Care Provider: Apolinar Alas Discharge Orders/Prescriptions Prescriptions: New ibuprofen 800 mg tablet 800 mg PO Q8H PRN (Reason: pain) 7 Days Qty: 30 RF: 0 Continued PNV-DHA 27 mg iron-1 mg -300 mg capsule 1 cap PO DAILY RF: 0 sertraline [Zoloft] 50 mg tablet 50 mg PO DAILY RF: 0 Discontinued aspirin 81 mg tablet,chewable 81 mg PO DAILY RF: 0 ondansetron HCl 4 mg tablet 4 mg PO Q8H PRN (Reason: nausea and vomiting) Qty: 30 RF: 3 Referrals / Follow Up: Apolinar Alas MD [Primary Care Provider] - Disposition Disposition (needs filled in before D/C Order can be placed): Home, Self Care
[2022-01-25 12:23] LABS: Hematocrit 32.2 % (37-47); Hemoglobin 10.6 g/dL (12.0-15.0); Mean Corp Hgb Conc 32.9 g/dL (32-36); Mean Corpuscular Hgb 28.8 pg (27.0-32.0); Mean Corpuscular Volume 87.5 fL (81-99); Mean Platelet Vol. 12.8 fl (6.2-12.0); Platelet Count 105 K/mm3 (150-450); RBC Distribution Width CV 13.4 % (11.6-14.6); RBC Distribution Width SD 42.6 fl (35.1-43.9); Red Blood Count 3.68 M/mm3 (4.2-5.4); White Blood Count 17.9 K/mm3 (4.4-11.0)
[2022-01-25] MEDS: Ibuprofen 600 MG Tablet PO (13:25)
--- NOTE | 2022-01-25 15:45 | NURSING ---
1415 pt signed consent for placenta to be picked up by [facility] to be encapsulated- pt verbalized understanding of risk
--- NOTE | 2022-01-25 16:23 | MDS.RN ---
pt up ambulate to BR pt gait steady
[2022-01-26] VITALS (8 sets, daily range): BP systolic 109–120; BP diastolic 57–69; PULSE 73–90; RESP 14–16; TEMP 36.3–36.6; O2SAT 96–97
--- NOTE | 2022-01-26 08:49 | PCM.PN.OB ---
Subjective Subjective Patient doing well without complaints. Tolerating PO. Ambulating and voiding without difficulty. Feeding well. Denies chest pain, shortness of breath, calf pain/swelling, fevers, chills, lightheadedness. Objective Data Objective Data Vital Signs: Vital Signs Temp Pulse Resp BP Pulse Ox 97.9 F 78 14 115/62 97 01/26/22 08:27 01/26/22 08:27 01/26/22 08:27 01/26/22 08:27 01/26/22 08:27 Oxygen Delivery Method Room Air Weight: 153 lb Body Mass Index (BMI) 27.1 Intake & Output: Intake and Output for Last 24 Hours 01/24/22 01/25/22 01/26/22 23:59 23:59 23:59 Intake Total 2873.92 / 2873.92 Output Total 1800 / 1800 Balance 1073.92 / 1073.92 Lab / Micro Data Result Diagrams: 01/25/22 12:15 Labs: Laboratory Results - last 24 hr 01/25/22 12:15: WBC 17.9 H, RBC 3.68 L, Hgb 10.6 L, Hct 32.2 L, MCV 87.5, MCH 28.8, MCHC 32.9, RDW Std Deviation 42.6, RDW Coeff of Kiko 13.4, Plt Count 105 L, MPV 12.8 H Micro: Microbiology 01/25/22 03:05 Nasal Secretion SARS-CoV-2 Antigen (Rapid) - Final Physical Exam Const alert and oriented x3 HEENT normocephalic Eyes PERRL Neck full ROM Resp normal respiratory effort GI soft to palpation GI Narrative: FF below U Assessment & Plan (1) Status post vacuum-assisted vaginal delivery: COMMENT: baby devyn Brito- JV PLAN: s/p VAVD PPD # 1 1. routine post delivery care 2. breast feeding- support given 3. rh positive 4. rubella immune 5. Possibly home today
[2022-01-26] MEDS: Ibuprofen 600 MG Tablet PO (10:18)
--- NOTE | 2022-10-27 08:06 | NURSING ---
Documentation Correction. Forceps were not used for this delivery per .
== END 2022-01-26 17:30 | disposition home or self-care (01) | DRG 560 ==
LOC: WPOUT 02:40 → WP 02:40
PROVIDERS: Admitting Provider Obstetrics & Gynecology; PCP Internal Medicine; Referring Provider Obstetrics & Gynecology; Visit Provider Obstetrics & Gynecology
DX: O75.81 Maternal exhaustion complicating labor and delivery (principal); Z37.0 Single live birth; K90.0 Celiac disease; Z79.899 Other long term (current) drug therapy; Z87.442 Personal history of urinary calculi; Z87.440 Personal history of urinary (tract) infections; O99.62 Diseases of the digestive system complicating childbirth; Z86.16 Personal history of COVID-19; Z3A.38 38 weeks gestation of pregnancy; O70.0 First degree perineal laceration during delivery
CPT/HCPCS: 59025; 59050; 84112; 85025; 85027; 86850; 86900; 86901; 87426; 99218; 99221; J7120; G0378

== ENCOUNTER → 2024-06-12 | Outpatient (CLI) | payer MEDICAID, SELFPAY ==
[2024-06-13 21:07] LABS: Chlamydia By Nucleic Acid AMP Negative (Negative); Gonococcus By Nucleic Acid AMP Negative (Negative)
[2024-06-16 10:58] LABS: HPV APTIMA, High Risk Negative (Negative)
== END | disposition home or self-care (01) ==
PROVIDERS: PCP Internal Medicine; Referring Provider Advanced Practice Midwife; Visit Provider Advanced Practice Midwife
DX: R10.2 Pelvic and perineal pain (principal); Z20.2 Contact with and (suspected) exposure to infections with a predominantly sexual mode of transmission; Z12.4 Encounter for screening for malignant neoplasm of cervix
CPT/HCPCS: 87491; 87591; 87624; 88175; G0145

== ENCOUNTER → 2024-06-16 | Outpatient (CLI) | payer MEDICAID, SELFPAY ==
--- NOTE | 2024-06-16 08:13 | US_ITS ---
STUDY: ULTRASOUND OF THE FEMALE PELVIS - COMPLETE REASON FOR EXAM: Female, 33 years old. pelvic pain, MID, INTERMITTENT TECHNIQUE: Endovaginal. Transvaginal US was obtained to better visualized the ovaries. COMPARISON: None. FINDINGS: The uterus is retroverted and is in a midline position. The uterus measures 7.8 x 5.9 cm. Normal uterine cervix. The endometrium measures 12 mm in thickness, and is hyperechoic. There is no demonstrated endometrial mass. There is no demonstrated myometrial mass. I.U.D. - The patient does not have an I.U.D. The right ovary is visualized. The right ovary measures 3.5 x 3.5 cm. There is no right ovarian cyst or ovarian mass. There is no visualized right adnexal mass or complex lesion. There is normal arterial and normal venous vascularity. The left ovary is visualized. The left ovary measures 3.5 x 3.4 cm. There is no left ovarian cyst or ovarian mass. There is no visualized left adnexal mass or complex lesion. There is normal arterial and normal venous vascularity. There is minimal fluid in the cul-de-sac. Unremarkable urinary bladder. US/Transvaginal Non- IMPRESSION: There is free fluid in the pelvis. This can be physiologic. Electronically Signed: Andrés Headley MD at 19:34 EDT ,
--- OUTSIDE RECORDS SUMMARY | 2024-06-16 08:32 | XMS RPT_ITS | CCD ---
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 Name Role Phone NUSRAT WILLIS Attending Unavailabl e NUSRAT WILLIS Referring Unavailabl e NO, PHYSICIAN Primary Care Unavailable No, Physician Primary Care Provider Unavailabl e Tavallaee, Apolinar M Unavailable Terrell Santos Unavailable Tavryanne, Apolinar M Unavailable Unavailable Unavailable Jodie CAZARES Attending Unavailable NO, PHYSICIAN Primary Care Unavailable Tavallaee, Apolinar Monazzam Referring Unav ailable Tavallaee, Apolinar Monazzam Attending Unav ailable Tavallaee, Apolinar Monazzam Primary Care Unav ailable Tavallaee, Apolinar Monazzam Primary Care Unav ailable MOURA, MsFelicia BLANK HARDY Referring Unavailab le MOURA, MsFelicia DASH Attending Unavailab le Tavallaee, Apolinar Monazzam Primary Care Unav ailable MOURA, MsFelicia BLANK HARDY Referring Unavailab le MOURA, MsFelicia BLANK HARDY Attending Unavailab le Tavallaee, Apolinar Monazzam Referring Unav ailable Tavallaee, Apolinar Monazzam Attending Unav ailable Tavallaee, Apolinar Monazzam Primary Care Unav ailable Medications Completed/Discontinued Medications Medication Drug Class(es) Dates Sig (Normalized) Sig (Original) amoxicillin 500 mg oral tablet (1 source) Penicillin-class Antibacterial Start: 08-11-2022 take 1 tablet by mouth twice daily Amoxicillin 500 MG Oral Tablet Take 1 tablet twice daily Quantity: 14 Refills: 0 Ordered: 11-Aug-2022 Christ WILL-POLISHER AND SANDER, Mary Start : 11-Aug-2022 Active betamethasone 0.5 mg/ml / clotrimazole 10 mg/ml topical cream (6 sources) Azole Antifungal, Corticosteroid Start: 03-03-2021 Clotrimazole-Betame thasone 1-0.05 % External Cream APPLY AND RUB IN A THIN FILM TO AFFECTED AREAS TWICE DAILY.(AM AND PM). Quantity: 1 Refills: 2 Ordered: 03-Mar-2021 Apolinar Alas MD Start : 03-Mar-2021 Active cephalexin 500 mg oral capsule (1 source) Cephalosporin Antibacterial Start: 04-26-2020 End: 05-05-2020 take 1 capsule by mouth four times daily cephalexin 500 mg oral capsule ; 1 cap(s) orally 4 times a day Quantity: 40 Refills: 0 Ordered: 26-Apr-2020 Terrell Santos Start: 26-Apr-2020 End: 05-May-2020 Generic Substitution Allowed Comments: Finish all this medication unless otherwise directed by prescriber. Comment on above: Finish all this medi cation unless otherwise directed by prescriber. escitalopram 10 mg oral tablet (2 sources) Serotonin Reuptake Inhibitor Start: 12-16-2020 End: 03-03-2021 take 1 tablet by mouth once daily Escitalopram Oxalate 10 MG Oral Tablet Take 1 tablet daily Quantity: 30 Refills: 11 Ordered: 16-Dec-2020 Apolinar Alas MD Start : 16-Dec-2020 End : 03-Mar-2021 Complete nitrofurantoin, macrocrystals 25 mg / nitrofurantoin, monohydrate 75 mg oral capsule (3 sources) Nitrofuran Antibacterial Start: 02-27-2021 Nitrofurantoin Monohyd Macro 100 MG Oral Capsule Quantity: 14 Refills: 0 Ordered: 27-Feb-2021 DO Start : 27-Feb-2021 Active PARoxetine hydrochloride 10 mg oral tablet (5 sources) Serotonin Reuptake Inhibitor Start: 03-03-2021 take 1 tablet by mouth once daily PARoxetine HCl - 10 MG Oral Tablet TAKE 1 TABLET BY MOUTH DAILY Quantity: 30 Refills: 11 Ordered: 03-Mar-2021 Apolinar Alas MD Start : 03-Mar-2021 Active + Complete Multi 18-0.8 & 290 MG Oral Therapy Pack (1 source) Start: 08-11-2022 + Complete Multi 18-0.8 & 290 MG Oral Therapy Pack TAke on daily Quantity: 0 Refills: 0 Ordered: 11-Aug-2022 Christ DILLNJohnathonRODMary Start : 11-Aug-2022 Active sertraline 50 mg oral tablet (1 source) Serotonin Reuptake Inhibitor Start: 08-11-2022 Sertraline HCl - 50 MG Oral Tablet TAKE 2 DAILY- FROM OBGYN Quantity: 0 Refills: 0 Ordered: 11-Aug-2022 Christ DILLNJohnathonPOLISHER AND SANDERMary Start : 11-Aug-2022 Active Problems Problem Classification Problem Date Documented Date Episodic/Chronic Anxiety disorders (6 sources) Mixed anxiety and depressive disorder; Translations: [Dysthymic disorder] Chronic Cardiac dysrhythmias (6 sources) Tachycardia; Translations: [Tachycardia, unspecified] Episodic Genitourinary symptoms and ill-defined conditions (6 sources) History of recurrent urinary tract infection; Translations: [Personal history, urinary (tract) infection] Episodic Mood disorders (2 sources) Depressive disorder; Translations: [Depressive disorder, not elsewhere classified] 02-25-2021 Chronic Mycoses (6 sources) Dermatophytosis; Translations: [Dermatophytosis of unspecified site] Episodic Nonmalignant breast conditions (3 sources) Mastodynia; Translations: [Pain of breast] Onset: 12-09-2018 Episodic Other screening for suspected conditions (not mental disorders or infectious disease) (6 sources) Increased vitamin D; Translations: [Other nonspecific findings on examination of blood] Episodic Other upper respiratory infections (1 source) Sinusitis; Translations: [Unspecified sinusitis (chronic)] Chronic Residual codes; unclassified (5 sources) Past history of procedure; Translations: [Other postprocedural status] Episodic Unclassified (2 sources) EXAM 02-25-2021 Comment on above: EXAM Unclassified (1 source) 2 MO F/U LABS 01-06-2021 Comment on above: 2 MO F/U LABS Results Test Name Value Interpretation Reference Range Facility Office Visit (Internal Medic ine)on 08-18-2022 Follow-up visit Diagnoses/Problems Assessed Sinusitis (473.9) (J32.9) Depression with anxiety (300.4) (F41.8) High serum vitamin D (790.99) (R79.89) Tachycardia (785.0) (R00.0) Orders Depression with anxiety, High serum vitamin D, Tachycardia Complete Blood Count + Differential; Status:Active; Requested for:18Sep2022; Perform:Lab Services - Lab To Draw (Blood Test); Due:17Dec2022;Ordered; For:Depression with anxiety, High serum vitamin D, Tachycardia; Ordered By:Mary Polo; Comprehensive Metabolic Panel; Status:Active; Requested for:18Sep2022; Perform:Lab Services - Lab To Draw (Blood Test); Due:17Dec2022;Ordered; For:Depression with anxiety, High serum vitamin D, Tachycardia; Ordered By:Mary Polo; Hemoglobin A1C; Status:Active; Requested for:18Sep2022; Perform:Lab Services - Lab To Draw (Blood Test); Due:17Dec2022;Ordered; For:Depression with anxiety, High serum vitamin D, Tachycardia; Ordered By:Mary Polo; Lipid Panel; Status:Active; Requested for:18Sep2022; Perform:Lab Services - Lab To Draw (Blood Test); Due:17Dec2022;Ordered; For:Depression with anxiety, High serum vitamin D, Tachycardia; Ordered By:Mary Polo; Parathormone Intact, Serum; Status:Active; Requested for:18Sep2022; Perform:Lab Services - Lab To Draw (Blood Test); Due:17Dec2022;Ordered; For:Depression with anxiety, High serum vitamin D, Tachycardia; Ordered By:Mary Polo; TSH WITH REFLEX TO FREE T4 IF ABNORMAL; Status:Active; Requested for:18Sep2022; Perform:Lab Services - Lab To Draw (Blood Test); Due:17Dec2022;Ordered; For:Depression with anxiety, High serum vitamin D, Tachycardia; Ordered By:Mary Polo; Vitamin D 25-Hydroxy; Status:Active; Requested for:18Sep2022; Perform:Lab Services - Lab To Draw (Blood Test); Due:17Dec2022;Ordered; For:Depression with anxiety, High serum vitamin D, Tachycardia; Ordered By:Mary Polo; Sinusitis Start: Fluticasone Propionate 50 MCG/ACT Nasal Suspension; USE 2 SPRAYS IN EACH NOSTRIL ONCE DAILY Rx By: Mary Polo; Dispense: 0 Days ; #:1 X 16 GM Bottle; Refill: 1;For: Sinusitis; GOPI = N; Verified Transmission to [facility] #[id number]; Last Updated By: System, Niurka; 08/18/2022 9:25:31 AM Patient Discussion/Summary 1 MONTH WITH FASTING LABS WITH MMT Provider Impressions DUE TO TECHNICAL DIFFICULTIES WITH VIRTUAL PLATFORM, THIS VIRTUAL APPOINTMENT WAS FINISHED THROUGH TELEPHONE. WE DISCUSSED MOST COMMON SIDE EFFECTS OF PRESCRIBED MEDICATIONS. INDICATIONS, RISK, COMPLICATIONS, AND ALTERNATIVES OF MEDICATION/THERAPEUTIC S WERE EXPLAINED AND DISCUSSED. PLEASE MONITOR CLOSELY FOR ANY UNTOWARD SIDE EFFECTS OR COMPLICATIONS OF MEDICATIONS. PATIENT IS STRONGLY ADVISED TO BE COMPLIANT WITH RECOMMENDATIONS. QUESTIONS AND CONCERNS WERE ADDRESSED. INSTRUCTED TO CALL, RETURN SOONER, OR GO TO THE ER, IF SYMPTOMS PERSIST OR WORSEN. THEY VOICED UNDERSTANDING AND DENIES FURTHER QUESTIONS AT THIS TIME. TIME CODE 1. PREPARATION FOR PATIENT'S VISIT (REVIEWING CHART, CURRENT MEDICAL RECORDS, OUTSIDE HEALTH PROVIDER RECORDS, PREVIOUS HISTORY, EXAM, TEST, PROCEDURE, AND MEDICATIONS) 2. FACE TO FACE ENCOUNTER OBTAINING HISTORY FROM THE PATIENT/FAMILY/CAREGIV ERS; PERFORMING EVALUATION AND EXAMINATION; ORDERING TESTS OR PROCEDURES; REFERRING AND COMMUNICATING WITH OTHER HEALTHCARE PROVIDERS; COUNSELING AND EDUCATION OF THE PATIENT/FAMILY/CAREGIV ERS; INDEPENDENTLY INTERPRETING RESULTS (TESTS, LABS, PROCEDURES, IMAGING) AND COMMUNICATING AND EXPLAINING RESULTS TO THE PATIENT/FAMILY/CAREGIV ERS 3. COORDINATION OF CARE; PREPARING AND PRINTING DISCHARGE INSTRUCTIONS AND ANY EDUCATIONAL MATERIAL FOR THE PATIENT/FAMILY/CAREGIV ERS. DOCUMENTING CLINICAL INFORMATION IN THE ELECTRONIC MEDICAL RECORD 4. REVIEWING OARRS NEEDED MDM 1) COMPLEXITY: 1 ACUTE ILLNESS, 1 STABLE CHRONIC CONDITION, OR 2 MINOR PROBLEMS ADDRESSED 2)DATA: TESTS INTERPRETED AND OR ORDERED, TOOK INDEPENDENT HISTORY OR RECORDS REVIEWED 3)RISK: LOW RISK DUE TO NATURE OF MEDICAL CONDITIONS/COMORBIDITY OR MEDICATIONS ORDERED OR SURGICAL OR PROCEDURE REFERRAL Chief Complaint An interactive audio and video telecommunication system which permits real time communications between the patient (at the originating site) and provider (at the distant site) was utilized to provide this telehealth service. Verbal consent was requested and obtained from SOPHIA ALLEN on this date, 08/18/2022 02:00 PM , for a telehealth visit. FOLLOW UP SINUS INFECTION. PT STATES SHE FEELS BETTER SHE JUST HAS A STUFFY NOSE History of Present IllnessVIRTUAL APPOINTMENT BEING PERFORMED DUE TO COVID-19 (CORONAVIRUS) Presents today for F/U SINUSITIS. SHE IS FEELING MUCH BETTER. ONLY SOME NASAL CONGESTION REMAINS. NO NEW COMPLAINTS Review of Systems Constitutional: not feeling poorly, no fever, no recent weight gain, no recent weight loss and no chills. Eyes: no blurred vision, no diplopia and no eyesight problems. ENT: no hearing loss, no tinnitus, no earache, no sore throat, no hoarseness, no swollen glands (more content not included)... Normal [facility] Visit (Internal Medic ine)on 08-11-2022 Follow-up visit Diagnoses/Problems Assessed Sinusitis (473.9) (J32.9) Orders Sinusitis Start: Amoxicillin 500 MG Oral Tablet; Take 1 tablet twice daily Rx By: Mary Polo; Dispense: 7 Days ; #:14 Tablet; Refill: 0;For: Sinusitis; GOPI = N; Verified Transmission to [facility]AC[facility] #[id number]; Last Updated By: [employer]Stream; 08/11/2022 10:58:55 AM Patient Discussion/Summary 08/18/22 AT 2PM VIRTUAL Provider Impressions REFUSED COVID-19 TESTING AT THIS TIME. SHE DOES HAVE A HOME TEST. CALL WITH TEST RESULTS. INSTRUCTED TO SELF QUARANTINE AND TO PRACTICE GOOD HAND WASHING TECHNIQUES. PT WAS INSTRUCTED TO INCREASE FLUID INTAKE AND TAKE TYLENOL 650 MG PO Q6H/PRN FOR PAIN OR FEVER. RETURN SOONER OR GO TO THE ER IF SYMPTOMS PERSIST OR WORSEN DUE TO TECHNICAL DIFFICULTIES WITH VIRTUAL PLATFORM, THIS VIRTUAL APPOINTMENT WAS FINISHED THROUGH TELEPHONE. WE DISCUSSED MOST COMMON SIDE EFFECTS OF PRESCRIBED MEDICATIONS. INDICATIONS, RISK, COMPLICATIONS, AND ALTERNATIVES OF MEDICATION/THERAPEUTIC S WERE EXPLAINED AND DISCUSSED. PLEASE MONITOR CLOSELY FOR ANY UNTOWARD SIDE EFFECTS OR COMPLICATIONS OF MEDICATIONS. PATIENT IS STRONGLY ADVISED TO BE COMPLIANT WITH RECOMMENDATIONS. QUESTIONS AND CONCERNS WERE ADDRESSED. INSTRUCTED TO CALL, RETURN SOONER, OR GO TO THE ER, IF SYMPTOMS PERSIST OR WORSEN. THEY VOICED UNDERSTANDING AND DENIES FURTHER QUESTIONS AT THIS TIME. TIME CODE 1. PREPARATION FOR PATIENT'S VISIT (REVIEWING CHART, CURRENT MEDICAL RECORDS, OUTSIDE HEALTH PROVIDER RECORDS, PREVIOUS HISTORY, EXAM, TEST, PROCEDURE, AND MEDICATIONS) 2. FACE TO FACE ENCOUNTER OBTAINING HISTORY FROM THE PATIENT/FAMILY/CAREGIV ERS; PERFORMING EVALUATION AND EXAMINATION; ORDERING TESTS OR PROCEDURES; REFERRING AND COMMUNICATING WITH OTHER HEALTHCARE PROVIDERS; COUNSELING AND EDUCATION OF THE PATIENT/FAMILY/CAREGIV ERS; INDEPENDENTLY INTERPRETING RESULTS (TESTS, LABS, PROCEDURES, IMAGING) AND COMMUNICATING AND EXPLAINING RESULTS TO THE PATIENT/FAMILY/CAREGIV ERS 3. COORDINATION OF CARE; PREPARING AND PRINTING DISCHARGE INSTRUCTIONS AND ANY EDUCATIONAL MATERIAL FOR THE PATIENT/FAMILY/CAREGIV ERS. DOCUMENTING CLINICAL INFORMATION IN THE ELECTRONIC MEDICAL RECORD 4. REVIEWING OARRS NEEDED MDM 1) COMPLEXITY: MORE THAN 1 STABLE CHRONIC CONDITION ADDRESSED OR 1 ACUTE ILLNESS ADDRESSED 2)DATA: TESTS INTERPRETED AND OR ORDERED, TOOK INDEPENDENT HISTORY OR RECORDS REVIEWED 3)RISK: MODERATE RISK DUE TO NATURE OF MEDICAL CONDITIONS/COMORBIDITY OR MEDICATIONS ORDERED OR SURGICAL OR PROCEDURE REFERRAL Chief Complaint An interactive audio and video telecommunication system which permits real time communications between the patient (at the originating site) and provider (at the distant site) was utilized to provide this telehealth service. Verbal consent was requested and obtained from SOPHIA ALLEN on this date, 08/11/2022 11:00 AM , for a telehealth visit. VIRTUAL- [phone]- PT C/O OF SORE THROAT,RUNNY NOSE,HEADACHE, TEETH HURT X 5 DAYS. NO TEMP. NO V/D. PT SON HAS RSV. PT IS CURRENTLY History of Present IllnessVIRTUAL APPOINTMENT BEING PERFORMED DUE TO COVID-19 (CORONAVIRUS) Presents today for C/O SORE THROAT, RUNNY NOSE, AND HIGH X 5 DAYS. modifying factors consists of HER SON HAS RSV. SHE IS CURRENTLY associated symptoms consist of SINUS PRESSURE. TEETH HURT. N SOB, CP, LOSS OF TASTE OR SMELL. prior treatment consists of medication NONE Review of Systems Constitutional: feeling poorly, but no fever, no recent weight gain, no recent weight loss and no chills. Eyes: no blurred vision, no diplopia and no eyesight problems. ENT: sore throat, but no hearing loss, no tinnitus, no earache, no hoarseness, no swollen glands in the neck and as noted in HPI. Cardiovascular: no chest pain, no tightness or heavy pressure, no shortness of breath, no palpitations and no lower extremity edema. Respiratory: no cough, not coughing up sputum, no wheezing that is consistent with asthma and no shortness of breath during exertion. Gastrointestinal: no change in bowel habits, no diarrhea, no constipation, no bloody stools, no nausea, no vomiting, no abdominal pain, no signs and symptoms of ulcer disease, no pippa colored stools and no intolerance to fatty foods. Genitourinary: no urinary frequency, no dysuria, no burning sensation during urination and no hematuria. Musculoskeletal: no arthralgias, no joint stiffness, no muscle weakness, no back pain and no difficulty walking. Skin: no rashes, no change in skin color and pigmentation, no skin lesions and no skin lumps. Neurological: headaches, but no dizziness, no seizures, no tingling, no numbness, no signs and symptoms of stroke and no limb weakness. Psychiatric: no confusion, no memory lapses or loss, no depression, no sleep disturbances, no anxiety and not suicidal. 10 SYSTEMS REVIEWED AND NEGATIVE, WHICH THE EXCEPTION OF HPI LISTED ABOVE Active Problems Problems Depression with anxiety (300.4) (F41.8) High seru (more content not included)... 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 We also explained that an increased nuchal fold can be associated with both normal pregnancies and those with chromosome abnormalities (such as Down syndrome), other genetic disorders, and/or heart defects. Pt with low risk cfDNA Scheduled for echocardiogram per Dr Pringle Informational handout on thickened nuchal fold given to pt. Normal [facility] Tobacco Screening.on 021 Fall risk assessment a) No falls within the last year [facility] Work Phone: Tobacco use status [facility] b) No [facility] Work Phone: COMPREHENSIVE PANELon 2020 Albumin [Mass/Vol] 4.6 g/dL Normal 3.4 - 5.0 [facility] Comment on above: Performed By: #### C MP #### [id number] [place] [address] ALP [Catalytic activity/Vol] 48 U/L Normal 33 - 110 [facility] Comment on above: Performed By: #### C MP #### [address] [address] ALT [Catalytic activity/Vol] 9 U/L Normal 7 - 45 [facility] Comment on above: Result Comment: Rosi ents treated with Sulfasalazine may generate falsely decreased results for ALT. Performed By: #### C MP #### [address] [address] Anion gap [Moles/Vol] 11 mmol/L Normal 10 - 20 [facility] Comment on above: Performed By: #### C MP #### [address] [address] AST [Catalytic activity/Vol] 13 U/L Normal 9 - 39 [facility] Comment on above: Performed By: #### C MP #### [address] [address] Bilirubin [Mass/Vol] 0.6 mg/dL Normal 0.0 - 1.2 [facility] Comment on above: Performed By: #### C MP #### [address] [address] Calcium [Mass/Vol] 9.6 mg/dL Normal 8.6 - 10.3 [facility] Comment on above: Performed By: #### C MP #### [address] [address] Chloride [Moles/Vol] 106 mmol/L Normal 98 - 107 [facility] Comment on above: Performed By: #### C MP #### [address] [address] Creatinine [Mass/Vol] 0.83 mg/dL Normal 0.50 - 1.05 [facility] Comment on above: Performed By: #### C MP #### [address] [address] GFR- AM. >60 Normal >60 [facility] Comment on above: Result Comment: CALC ULATIONS OF ESTIMATED GFR ARE PERFORMED USING THE MDRD STUDY EQUATION FOR THE IDMS-TRACEABLE CREATININE METHODS. CLIN CHEM 2007;53:766-72 Performed By: #### C MP #### [address] [address] GFR-NON AM. >60 Normal >60 [facility] Comment on above: Performed By: #### C MP #### [address] [address] Glucose [Mass/Vol] 86 mg/dL Normal 74 - 99 [facility] Comment on above: Performed By: #### C MP #### [address] [address] HCO3 (Bld) [Moles/Vol] 27 mmol/L Normal 21 - 32 [facility] Comment on above: Performed By: #### C MP #### [address] [address] Potassium [Moles/Vol] 3.7 mmol/L Normal 3.5 - 5.3 [facility] Comment on above: Performed By: #### C MP #### [address] [address] Protein [Mass/Vol] 7.2 g/dL Normal 6.4 - 8.2 [facility] Comment on above: Performed By: #### C MP #### [address] [address] Sodium [Moles/Vol] 140 mmol/L Normal 136 - 145 [facility] Comment on above: Performed By: #### C MP #### [address] [address] Urea nitrogen [Mass/Vol] 17 mg/dL Normal 6 - 23 [facility] Comment on above: Performed By: #### C MP #### [address] [address] Laboratory - Chemistry and C hemistry - challengeon 03-03-2021 Albumin BCP dye [Mass/Vol] 4.6 g/dL 3.4 - 5.0 [facility] Work Phone: ALP [Catalytic activity/Vol] 48 U/L 33 - 110 [facility] Work Phone: ALT With P-5'-P [Catalytic activity/Vol] 9 U/L 7 - 45 [facility] Work Phone: Comment on above: Patients treated wit h Sulfasalazine may generate falsely decreased results for ALT. Anion gap [Moles/Vol] 11 mmol/L 10 - 20 [facility] Work Phone: AST With P-5'-P [Catalytic activity/Vol] 13 U/L 9 - 39 [facility] Work Phone: Bilirubin [Mass/Vol] 0.6 mg/dL 0.0 - 1.2 [facility] Work Phone: Calcium [Mass/Vol] 9.6 mg/dL 8.6 - 10.3 [facility] Work Phone: Chloride [Moles/Vol] 106 mmol/L 98 - 107 [facility] Work Phone: CO2 [Moles/Vol] 27 mmol/L 21 - 32 [facility] Work Phone: Creatinine [Mass/Vol] 0.83 mg/dL See Below [facility] Work Phone: Comment on above: Reference Range: 0.5 0 - 1.05 Glucose [Mass/Vol] 86 mg/dL 74 - 99 [facility] Work Phone: Potassium [Moles/Vol] 3.7 mmol/L 3.5 - 5.3 [facility] Work Phone: Protein [Mass/Vol] 7.2 g/dL 6.4 - 8.2 [facility] Work Phone: Sodium [Moles/Vol] 140 mmol/L 136 - 145 [facility] Work Phone: Urea nitrogen [Mass/Vol] 17 mg/dL 6 - 23 [facility] Work Phone: MAGNESIUMon 03-03-2021 Magnesium [Mass/Vol] 2.04 mg/dL Normal 1.60 - 2.40 [facility] Comment on above: Performed By: #### M G #### [address] [address] Magnesium, Serumon Magnesium [Mass/Vol] 2.04 mg/dL See Below [facility] Work Phone: Comment on above: Reference Range: 1.6 0 - 2.40 No Panel Informationon 03-03 >60 >60 [facility] Work Phone: Comment on above: CALCULATIONS OF PURVI MATED GFR ARE PERFORMED USING THE MDRD STUDY EQUATION FOR THE IDMS-TRACEABLE CREATININE METHODS. CLIN CHEM 2007;53:766-72 PARATHYROID HORMONE,INTACTon 03-03-2021 PARATHYROID HORMONE,INTACT 18.5 pg/mL Normal 18.5 - 88.0 [facility] Comment on above: Performed By: #### V TDOH #### [address] [address] PHOSPHORUSon 03-03-2021 Phosphate [Mass/Vol] 3.0 mg/dL Normal 2.5 - 4.9 [facility] Comment on above: Result Comment: The performance characteristics of phosphorus testing in heparinized plasma have been validated by the individual laboratory site where testing is performed. Testing on heparinized plasma is not approved by the FDA; however, such approval is not necessary. Performed By: #### C BCDF #### [address] [address] Parathormone Intact, Serumon 03-03-2021 Parathyrin.intact [Mass/Vol] 18.5 pg/mL See Below [facility] Work Phone: Comment on above: Reference Range: 18. 5 - 88.0 Phosphorus, Serumon 03-03-20 Phosphate [Mass/Vol] 3.0 mg/dL 2.5 - 4.9 [facility] Work Phone: Comment on above: The performance go acteristics of phosphorus testing in heparinized plasma have been validated by the individual laboratory site where testing is performed. Testing on heparinized plasma is not approved by the FDA; however, such approval is not necessary. Tobacco Screening.on 021 Fall risk assessment a) No falls within the last year [facility] Work Phone: Tobacco use status [facility] b) No [facility] Work Phone: VITAMIN D, 25-HYDROXYon 02-20 VITAMIN D, 25-HYDROXY 94 ng/mL Normal [facility] Comment on above: Result Comment: . DEFICIENCY: < 20 NG/ML INSUFFICIENCY: 20-29 NG/ML SUFFICIENCY: 30-100 NG/ML THIS ASSAY ACCURATELY QUANTIFIES THE SUM OF VITAMIN D3, 25-HYDROXY AND VIT D2,25-HYDROXY. Performed By: #### V TDOH #### [address] [address] Vitamin D 25-Hydroxyon 03-03 25-hydroxyvitamin D3 [Mass/Vol] 94 ng/mL [facility] Work Phone: Comment on above: .DEFICIENCY: < 20 NG /MLINSUFFICIENCY: 20-29 NG/MLSUFFICIENCY: 30-100 NG/MLTHIS ASSAY ACCURATELY QUANTIFIES THE SUM OFVITAMIN D3, 25-HYDROXY AND VIT D2,25-HYDROXY. ACUTE TOXICOLOGY PANEL, BLOO Don 02-25-2021 Acetaminophen [Mass/Vol] ug/mL Normal 10.0 - 30.0 [facility] Comment on above: Performed By: #### V TDOH #### [address] [address] Ethanol [Mass/Vol] mg/dL Normal [facility] Comment on above: Result Comment: FOR MEDICAL USE ONLY. . REF VALUES <10 Performed By: #### V TDOH #### [address] [address] SALICYLATE <3 Normal 4 - 20 [facility] Comment on above: Performed By: #### V TDOH #### [address] [address] Acetaminophen [Mass/Vol] ug/mL See Below [facility] Work Phone: Comment on above: Reference Range: 10. 0 - 30.0 Ethanol [Mass/Vol] mg/dL [facility] Work Phone: Comment on above: FOR MEDICAL USE ONLY . .REF VALUES <10 Salicylates [Mass/Vol] mg/dL 4 - 20 [facility] Medicine Work Phone: BASIC METABOLIC PANELon 07-0 Anion gap [Moles/Vol] 11 mmol/L Normal 10 - 20 [facility] Comment on above: Performed By: #### V TDOH #### [address] [address] Calcium [Mass/Vol] 9.6 mg/dL Normal 8.6 - 10.3 [facility] Comment on above: Performed By: #### V TDOH #### [address] [address] Chloride [Moles/Vol] 105 mmol/L Normal 98 - 107 [facility] Comment on above: Performed By: #### V TDOH #### [address] [address] Creatinine [Mass/Vol] 0.76 mg/dL Normal 0.50 - 1.05 [facility] Comment on above: Performed By: #### V TDOH #### [address] [address] GFR- AM. >60 Normal >60 [facility] Comment on above: Result Comment: CALC ULATIONS OF ESTIMATED GFR ARE PERFORMED USING THE MDRD STUDY EQUATION FOR THE IDMS-TRACEABLE CREATININE METHODS. CLIN CHEM 2007;53:766-72 Performed By: #### V TDOH #### [address] [address] GFR-NON AM. >60 Normal >60 [facility] Comment on above: Performed By: #### V TDOH #### [address] [address] Glucose [Mass/Vol] 138 mg/dL High 74 - 99 [facility] Comment on above: Performed By: #### V TDOH #### [address] [address] HCO3 (Bld) [Moles/Vol] 25 mmol/L Normal 21 - 32 [facility] Comment on above: Performed By: #### V TDOH #### [address] [address] Potassium [Moles/Vol] 3.5 mmol/L Normal 3.5 - 5.3 [facility] Comment on above: Performed By: #### V TDOH #### [address] [address] Sodium [Moles/Vol] 137 mmol/L Normal 136 - 145 [facility] Comment on above: Performed By: #### V TDOH #### [address] [address] Urea nitrogen [Mass/Vol] 11 mg/dL Normal 6 - 23 [facility] Comment on above: Performed By: #### V TDOH #### [address] [address] CBC AND DIFFERENTIALon 02-25 Basophils (Bld) [#/Vol] 0.00 10*3/uL Normal 0.00 - 0.10 [facility] Comment on above: Performed By: #### C BCDF #### [address] [address] Basophils/100 WBC (Bld) 0.4 % Normal 0.0 - 2.0 [facility] Comment on above: Performed By: #### C BCDF #### [address] [address] Eosinophils (Bld) [#/Vol] 0.00 10*3/uL Normal 0.00 - 0.70 [facility] Comment on above: Performed By: #### C BCDF #### [address] [address] Eosinophils/100 WBC (Bld) 0.3 % Normal 0.0 - 6.0 [facility] Comment on above: Performed By: #### C BCDF #### [address] [address] Erythrocyte distribution width (RBC) [Ratio] 12.7 % Normal 11.5 - 14.5 [facility] Comment on above: Performed By: #### C BCDF #### [address] [address] Hematocrit (Bld) [Volume fraction] 38.6 % Normal 36.0 - 46.0 [facility] Comment on above: Performed By: #### C BCDF #### [address] [address] Hemoglobin (Bld) [Mass/Vol] 13.0 g/dL Normal 12.0 - 16.0 [facility] Comment on above: Performed By: #### C BCDF #### [address] [address] Lymphocytes (Bld) [#/Vol] 1.40 10*3/uL Normal 1.20 - 4.80 [facility] Comment on above: Performed By: #### C BCDF #### [address] [address] Lymphocytes/100 WBC (Bld) 17.5 % Normal 13.0 - 44.0 [facility] Comment on above: Performed By: #### C BCDF #### [address] [address] MCHC (RBC) [Mass/Vol] 33.8 g/dL Normal 32.0 - 36.0 [facility] Comment on above: Performed By: #### C BCDF #### [address] [address] MCV (RBC) [Entitic vol] 91 fL Normal 80 - 100 [facility] Comment on above: Performed By: #### C BCDF #### [address] [address] Monocytes (Bld) [#/Vol] 0.60 10*3/uL Normal 0.10 - 1.00 [facility] Comment on above: Performed By: #### C BCDF #### [address] [address] Monocytes/100 WBC (Bld) 7.9 % Normal 2.0 - 10.0 [facility] Comment on above: Performed By: #### C BCDF #### [address] [address] Neutrophils (Bld) [#/Vol] 6.00 10*3/uL Normal 1.20 - 7.70 [facility] Comment on above: Result Comment: Perc ent differential counts (%) should be interpreted in the context of the absolute cell counts (cells/L). Performed By: #### C BCDF #### [address] [address] Neutrophils/100 WBC (Bld) 73.9 % Normal 40.0 - 80.0 [facility] Comment on above: Performed By: #### C BCDF #### [address] [address] NUCLEATED RBC 0.1 /100 WBC Normal [facility] Comment on above: Performed By: #### C BCDF #### [address] [address] Platelets (Bld) [#/Vol] 189 10*3/uL Normal 150 - 450 [facility] Comment on above: Performed By: #### C BCDF #### [address] [address] RBC 4.26 x10E12/L Normal 4.00 - 5.20 [facility] Comment on above: Performed By: #### C BCDF #### [address] [address] WBC (Bld) [#/Vol] 8.2 10*3/uL Normal 4.4 - 11.3 [facility] Comment on above: Performed By: #### C BCDF #### [address] [address] Complete Blood Count + Diffe leobardo 02-25-2021 Basophils/100 WBC (Bld) 0.4 % 0.0 - 2.0 [facility] Medicine Work Phone: Erythrocyte distribution width (RBC) [Ratio] 12.7 % See Below [facility] Work Phone: Comment on above: Reference Range: 11. 5 - 14.5 Hematocrit (Bld) [Volume fraction] 38.6 % See Below [facility] Work Phone: Comment on above: Reference Range: 36. 0 - 46.0 Hemoglobin (Bld) [Mass/Vol] 13.0 g/dL See Below [facility] Work Phone: Comment on above: Reference Range: 12. 0 - 16.0 Lymphocytes/100 WBC (Bld) 17.5 % See Below [facility] Work Phone: Comment on above: Reference Range: 13. 0 - 44.0 MCHC (RBC) [Mass/Vol] 33.8 g/dL See Below [facility] Work Phone: Comment on above: Reference Range: 32. 0 - 36.0 MCV (RBC) [Entitic vol] 91 fL 80 - 100 [facility] Work Phone: Monocytes/100 WBC (Bld) 7.9 % 2.0 - 10.0 [facility] Work Phone: Neutrophils/100 WBC (Bld) 73.9 % See Below [facility] Work Phone: Comment on above: Reference Range: 40. 0 - 80.0 Platelets (Bld) [#/Vol] 189 10*3/uL 150 - 450 [facility] Work Phone: RBC (Bld) [#/Vol] 4.26 {x10E12/L} See Below [facility] Work Phone: Comment on above: Reference Range: 4.0 0 - 5.20 WBC (Bld) [#/Vol] 8.2 10*3/uL 4.4 - 11.3 [facility] Work Phone: Complete Blood Count + Differential 0.00 {x10E9/L} See Below [facility] Work Phone: Comment on above: Reference Range: 0.0 0 - 0.10 Reference Range: 0.0 0 - 0.70 Complete Blood Count + Differential 0.60 {x10E9/L} See Below [facility] Work Phone: Comment on above: Reference Range: 0.1 0 - 1.00 Complete Blood Count + Differential 1.40 {x10E9/L} See Below [facility] Work Phone: Comment on above: Reference Range: 1.2 0 - 4.80 Complete Blood Count + Differential 6.00 {x10E9/L} See Below [facility] Work Phone: Comment on above: Reference Range: 1.2 0 - 7.70 Percent differential counts (%) should be interpreted in the context of the absolute cell counts (cells/L). Complete Blood Count + Differential 0.3 % 0.0 - 6.0 [facility] Work Phone: Complete Blood Count + Differential 0.1 {/100_WBC} [facility] Work Phone: Cult, Urineon 02-25-2021 Bacteria identified Cx Nom (U) [facility] Work Phone: DRUG SCREEN,URINEon 02-26-20 21 AMPHETAMINE SCREEN,U Negative Normal NEGATIVE [facility] Comment on above: Result Comment: CUTO FF LEVEL: 500 NG/ML Cross-reactivity has been reported with high concentrations of the following drugs: buproprion, chloroquine, chlorpromazine, ephedrine, mephentermine, fenfluramine, phentermine, phenylpropanolamine, pseudoephedrine, and propranolol. Performed By: #### C BCDF #### [place] [address] BARBITURATES SCREEN,U Negative Normal NEGATIVE [facility] Comment on above: Result Comment: CUTO FF LEVEL: 200 NG/ML Performed By: #### C BCDF #### [address] [address] BENZODIAZEPINES SCREEN,U Negative Normal NEGATIVE [facility] Comment on above: Result Comment: CUTO FF LEVEL: 200 NG/ML Performed By: #### C BCDF #### [place] [address] CANNABINOIDS SCREEN,U Negative Normal NEGATIVE [facility] Comment on above: Result Comment: CUTO FF LEVEL: 50 NG/ML Performed By: #### C BCDF #### [place] [address] COCAINE METABOLITE SCREEN,U Negative Normal NEGATIVE [facility] Comment on above: Result Comment: CUTO FF LEVEL: 150 NG/ML Performed By: #### C BCDF #### [place] [address] DRUG SCREEN COMMENT SEE BELOW Normal [facility] Comment on above: Result Comment: Drug screen results are presumptive and should not be used to assess compliance with prescribed medication. Contact the performing [facility] laboratory to add-on definitive confirmatory testing if clinically indicated. . Toxicology screening results are reported qualitatively. The concentration must be greater than or equal to the cutoff to be reported as positive. The concentration at which the screening test can detect an individual drug or metabolite varies. The absence of expected drug(s) and/or drug metabolite(s) may indicate non-compliance, inappropriate timing of specimen collection relative to drug administration, poor drug absorption, diluted/adulterated urine, or limitations of testing. For medical purposes only; not valid for forensic use. . Interpretive questions should be directed to the laboratory medical directors. Performed By: #### C BCDF #### [place] [address] FENTANYL SCREEN,URINE Negative Normal NEGATIVE [facility] Comment on above: Result Comment: CUTO FF LEVEL: 1 NG/ML The performance characteristics of this test have been determined by the individual laboratory site where testing is performed. This test has not been cleared or approved by the FDA; however, the FDA has determined that such clearance is not necessary. Performed By: #### C BCDF #### [place] [address] METHADONE SCREEN,U Negative Normal NEGATIVE [facility] Comment on above: Result Comment: CUTO FF LEVEL: 150 NG/ML The metabolite F-vbynn-aotrdfcxgzuqsm (LAAM) is not detected by this method in concentrations that would be found in the urine of patients on LAAM therapy. Performed By: #### C BCDF #### [place] [address] OPIATES SCREEN,U Negative Normal NEGATIVE [facility] Comment on above: Result Comment: CUTO FF LEVEL: 300 NG/ML The opiate screen does not detect fentanyl, meperidine, or tramadol. Oxycodone is not consistently detected (refer to Oxycodone Screen, Urine result). Performed By: #### C BCDF #### [place] [address] OXYCODONE SCREEN,U Negative Normal NEGATIVE [facility] Comment on above: Result Comment: CUTO FF LEVEL: 100 NG/ML This test will accurately detect both oxycodone and oxymorphone. Performed By: #### C BCDF #### [place] [address] PCP SCREEN,U Negative Normal NEGATIVE [facility] Comment on above: Result Comment: CUTO FF LEVEL: 25 NG/ML Cross-reactivity has been reported with dextromethorphan. Performed By: #### C BCDF #### [place] [address] HCG,URINEon 02-25-2021 Beta HCG ( test) Ql (U) Negative Normal Negative [facility] Comment on above: Performed By: #### H CGU #### [place] [address] HEPATIC FUNCTION PANELon Albumin [Mass/Vol] 4.4 g/dL Normal 3.4 - 5.0 [facility] Comment on above: Performed By: #### V TDOH #### [place] [address] ALP [Catalytic activity/Vol] 45 U/L Normal 33 - 110 [facility] Comment on above: Performed By: #### V TDOH #### [place] [id number] ALT [Catalytic activity/Vol] 10 U/L Normal 7 - 45 [facility] Comment on above: Result Comment: Rosi ents treated with Sulfasalazine may generate falsely decreased results for ALT. Performed By: #### V TDOH #### [address] [address] AST [Catalytic activity/Vol] 14 U/L Normal 9 - 39 [facility] Comment on above: Performed By: #### V TDOH #### [address] [address] Bilirubin [Mass/Vol] 0.7 mg/dL Normal 0.0 - 1.2 [facility] Comment on above: Performed By: #### V TDOH #### [address] [address] Bilirubin.indirect [Mass/Vol] 0.1 mg/dL Normal 0.0 - 0.3 [facility] Comment on above: Performed By: #### V TDOH #### [address] [address] Protein [Mass/Vol] 6.7 g/dL Normal 6.4 - 8.2 [facility] Comment on above: Performed By: #### V TDOH #### [address] [address] Hepatic Function Panelon Albumin BCP dye [Mass/Vol] 4.4 g/dL 3.4 - 5.0 [facility] Work Phone: ALP [Catalytic activity/Vol] 45 U/L 33 - 110 [facility] Work Phone: ALT With P-5'-P [Catalytic activity/Vol] 10 U/L 7 - 45 [facility] Work Phone: Comment on above: Patients treated wit h Sulfasalazine may generate falsely decreased results for ALT. AST With P-5'-P [Catalytic activity/Vol] 14 U/L 9 - 39 [facility] Work Phone: Bilirubin [Mass/Vol] 0.7 mg/dL 0.0 - 1.2 [facility] Work Phone: Bilirubin.direct [Mass/Vol] 0.1 mg/dL 0.0 - 0.3 [facility] Work Phone: Protein [Mass/Vol] 6.7 g/dL 6.4 - 8.2 [facility] Work Phone: Laboratory - Chemistry and C hemistry - challengeon 02-25-2021 Anion gap [Moles/Vol] 11 mmol/L 10 - 20 [facility] Work Phone: Calcium [Mass/Vol] 9.6 mg/dL 8.6 - 10.3 [facility] Work Phone: Chloride [Moles/Vol] 105 mmol/L 98 - 107 [facility] Work Phone: CO2 [Moles/Vol] 25 mmol/L 21 - 32 [facility] Work Phone: Creatinine [Mass/Vol] 0.76 mg/dL See Below [facility] Work Phone: Comment on above: Reference Range: 0.5 0 - 1.05 Glucose [Mass/Vol] 138 mg/dL above high threshold 74 - 99 [facility] Medicine Work Phone: Potassium [Moles/Vol] 3.5 mmol/L 3.5 - 5.3 [facility] Work Phone: Sodium [Moles/Vol] 137 mmol/L 136 - 145 [facility] Work Phone: Urea nitrogen [Mass/Vol] 11 mg/dL 6 - 23 [facility] Medicine Work Phone: Laboratory - Drug toxicology on 02-25-2021 Amphetamines Screen Ql (U) Negative NEGATIVE [facility] Work Phone: Comment on above: CUTOFF LEVEL: 500 NG /ML Cross-reactivity has been reported with high concentrations of the following drugs: buproprion, chloroquine, chlorpromazine, ephedrine, mephentermine, fenfluramine, phentermine, phenylpropanolamine, pseudoephedrine, and propranolol. Barbiturates Screen Ql (U) Negative NEGATIVE [facility] Medicine Work Phone: Comment on above: CUTOFF LEVEL: 200 NG /ML Benzodiazepines Ql (U) Negative NEGATIVE [facility] Work Phone: Comment on above: CUTOFF LEVEL: 200 NG /ML Benzoylecgonine Screen Ql (U) Negative NEGATIVE [facility] Work Phone: Comment on above: CUTOFF LEVEL: 150 NG /ML Cannabinoids Screen Ql (U) Negative NEGATIVE [facility] Work Phone: Comment on above: CUTOFF LEVEL: 50 NG/ ML Methadone Screen Ql (U) Negative NEGATIVE [facility] Work Phone: Comment on above: CUTOFF LEVEL: 150 NG /ML The metabolite U-laurt-wwofzdbxporcfa (LAAM) is not detected by this method in concentrations that would be found in the urine of patients on LAAM therapy. Opiates Screen Ql (U) Negative NEGATIVE [facility] Work Phone: Comment on above: CUTOFF LEVEL: 300 NG /ML The opiate screen does not detect fentanyl, meperidine, or tramadol. Oxycodone is not consistently detected (refer to Oxycodone Screen, Urine result). oxyCODONE+oxyMORpho ne Screen Ql (U) Negative NEGATIVE [facility] Work Phone: Comment on above: CUTOFF LEVEL: 100 NG /ML This test will accurately detect both oxycodone and oxymorphone. Phencyclidine Ql (U) Negative NEGATIVE [facility] Work Phone: Comment on above: CUTOFF LEVEL: 25 NG/ ML Cross-reactivity has been reported with dextromethorphan. No Panel Informationon 02-25 >60 >60 [facility] Work Phone: Comment on above: CALCULATIONS OF PURVI MATED GFR ARE PERFORMED USING THE MDRD STUDY EQUATION FOR THE IDMS-TRACEABLE CREATININE METHODS. CLIN CHEM 2007;53:766-72 SEE BELOW [facility] Work Phone: Comment on above: Drug screen results are presumptive and should not be used to assess compliance with prescribed medication. Contact the performing [facility] laboratory to add-on definitive confirmatory testing if clinically indicated. .Toxicology screening results are reported qualitatively. The concentration must be greater than or equal to the cutoff to be reported as positive. The concentration at which the screening test can detect an individual drug or metabolite varies. The absence of expected drug(s) and/or drug metabolite(s) may indicate non-compliance, inappropriate timing of specimen collection relative to drug administration, poor drug absorption, diluted/adulterated urine, or limitations of testing. For medical purposes only; not valid for forensic use. .Interpretive questions should be directed to the laboratory medical directors. [email or web address] 1: [email or web address]?[email or web address] ateTime?FawsxayPM=[email or web address] 19502&Date=01-27-2021& Time=16%[id number]%3a00 &TestType=ECG&Site=14& OutputType=PDF&Ext=PDF [facility] Work Phone: Please see physicia n note for formal interpretation confirmed by Scribe [facility] Work Phone: Normal [facility] Work Phone: [phone] [facility] Work Phone: [phone] [facility] Work Phone: [phone] [facility] Work Phone: [phone] [facility] Work Phone: [phone] 1 [facility] Work Phone: [phone] 1 [facility] Work Phone: [phone] [facility] Work Phone: [phone] [facility] Work Phone: [phone] [facility] Work Phone: [phone] [facility] Work Phone: [phone] [facility] Work Phone: [phone] [facility] Work Phone: Provider Note - ED v2on 07-0 Provider Note - ED v2 Provider Note - ED v2: Chart Review: ED NOTES ED NOTES: ====HPI==== Patient is a 30-year-old female who presents to the emergency department for chief complaint of suicidal ideation. Patient reports that she took a suicidal attempt by taking 3 Lexapro yesterday evening. She states that this was not in an attempt to kill her self but in order to make her feel better. She states that she is typically a very depressed person. She is always suicidal but has no plan. She states that today she went home from work because she was not feeling herself. She states that she noticed her heart rate was elevated. She states that she is anxious. Her anxiety has improved since she has been here in the emergency department. She denies any chest pain or shortness of breath. No abdominal pain. No nausea or vomiting. ====Review of Systems==== 10 point system review is negative except for those specifically mentioned in history of present illness ====Physical Exam==== Constitutional/General : Alert and oriented x3, well appearing, nontoxic, and in NAD. Head: Normocephalic and atraumatic. Eyes: PERRL, EOMI, conjunctive normal, sclera nonicteric, subconjunctival layer is pink. Mouth: Oropharynx clear, handling secretions, no trismus, no asymmetry of the posterior oropharynx or uvular edema Neck: Supple, full ROM, non tender to palpation in the midline, no stridor, no crepitus, no meningeal signs. Trachea at midline. Respiratory: Lungs clear to auscultation bilaterally, no wheezes, rales, or rhonchi, not in respiratory distress. Cardiovascular: Regular rate, regular rhythm, no murmurs, gallops, or rubs, 2+ distal pulses. Chest: normal chest wall movement GI: Abdomen soft, nontender, nondistended, no organomegaly, no palpable masses, no rebound, guarding, or rigidity. Musculoskeletal: Moves all extremities x4, warm and well perfused, no clubbing, cyanosis, or edema, cap refill <3 seconds Integument: Skin warm and dry, no rashes. Lymphatic: No lymphadenopathy noted. Neurologic: GCS 15. No focal deficits Psychiatric: Flat affect ====ED Course and Medical Decision Making==== See MDM section for review of findings & plan of care. Portions of this note were dictated by speech recognition. An attempt at proof reading was made to minimize errors. Minor errors in weigher and charger may be present. Please call if questions.. HISTORY OF PRESENTING ILLNESS SOPHIA is a 30 year old Female and was seen by me at 25-Feb-2021 17:08 for a chief complaint of suicidal attempt (pt to ER with report of taking 3 Lexapro last night so she would feel better--pt has very flat affect and is stating she is always depressed and always suicidal but has no plan--pt will be watched and evaluated by Rajinder)(1). Triage Information: Most recent Vital Sign Value Date Temp (F): 98 02-25-2021 17:28 Temp (C): 36.6 02-25-2021 17:28 Heart Rate (beats/min): 126 02-25-2021 17:28 Respirations (breaths/min): 17 02-25-2021 17:28 SpO2 (%): 98 02-25-2021 17:28 PAST MEDICAL HISTORY ATTESTATION: I have reviewed and confirmed nurse's/medic's notes for patient's medications, allergies, and medical, surgical, family and social history ALLERGIES/INTOLERANCES : No Known Allergies HEALTH HISTORY: No documented data. OUTPATIENT MEDICATIONS: Home Medications Review Status for Reconciliation: N/A Med Status: Patient Currently Takes Medications Drug Name: cephalexin 500 mg oral capsule Instructions: 1 cap(s) orally 4 times a day SIGNIFICANT EVENTS: Past Medical History Description:KIDNEY STONES [employer] REPA[employer]ER DOMESTIC: Is : no(1) Is : no(1) RESULTS/VITAL SIGNS RESULTS: Recent Lab Results: I have reviewed these laboratory results: Hepatic Function Panel 25-Feb-2021 17:50:00 ResultValue Aspartate Transaminase, Serum 14 ALB 4.4 T Bili 0.7 Bilirubin, Serum Direct - Conjugated 0.1 ALKP 45 Alanine Aminotransferase, Serum 10 T Pro 6.7 Complete Blood Count + Differential 25-Feb-2021 17:50:00 ResultValue White Blood Cell Count 8.2 Nucleated Erythrocyte Count 0.1 Red Blood Cell Count 4.26 HGB 13.0 HCT 38.6 MCV 91 MCHC 33.8 PLT 189 RDW-CV 12.7 Neutrophil % 73.9 Lymphocyte % 17.5 Monocyte % 7.9 Eosinophil % 0.3 Basophil % 0.4 Neutrophil Count 6.00 Lymphocyte Count 1.40 Monocyte Count 0.60 Eosinophil Count 0.00 Basophil Count 0.00 Basic Metabolic Panel 25-Feb-2021 17:50:00 ResultValue Glucose, Serum 138 H NA 137 K 3.5 CL 105 Bicarbonate, Serum 25 Anion Gap, Serum 11 BUN 11 CREAT 0.76 GFR-Non >60 GFR- >60 Calcium, Serum 9.6 Acute Toxicology Panel, Blood 25-Feb-2021 17:50:00 ResultValue Acetaminophen Level, Serum <10.0 Acetylsalicylic Acid Level, Serum <3 Ethanol Level <10 Thyroid Stimulating Hormone, Serum 25-Feb-2021 17:50:00 ResultValue Thyroid Stimulat (more content not included)... Normal [facility] TROPONIN Ion 02-25-2021 Troponin I.cardiac [Mass/Vol] ng/mL Normal 0.00 - 0.03 [facility] Comment on above: Result Comment: LESS THAN 0.04 NG/ML: NEGATIVE REPEAT TESTING IN THREE TO SIX HOURS IF CLINICALLY INDICATED. 0.04 - 0.5 NG/ML: CONSISTENT WITH POSSIBLE CARDIAC DAMAGE AND POSSIBLE INCREASED CLINICAL RISK. SERIAL MEASUREMENTS MAY HELP ASSESS EXTENT OF MYOCARDIAL DAMAGE. >0.5 NG/ML: CONSISTENT WITH CARDIAC DAMAGE, INCREASED CLINICAL RISK AND MYOCARDIAL INFARCTION. SERIAL MEASUREMENTS MAY HELP ASSESS EXTENT OF MYOCARDIAL DAMAGE. . Note: Troponin I testing is performed using different testing methodology at [facility] than at other [facility]. Direct result comparisons should only be made within the same method. Performed By: #### C BCDF #### [address] [address] TSHon 02-25-2021 TSH Qn 3.17 m[IU]/L Normal 0.44 - 3.98 [facility] Comment on above: Result Comment: TSH testing is performed using different testing methodology at [facility] than at other [facility]. Direct result comparisons should only be made within the same method. Performed By: #### C BCDF #### [address] [address] TSH - Thyroid Stimulating Ho rmone, Serumon 02-25-2021 TSH Qn 3.17 m[IU]/L See Below -[facility] Internal Medicine Work Phone: Comment on above: Reference Range: 0.4 4 - 3.98 TSH testing is performed using different testing methodology at [facility] than at other [facility]. Direct result comparisons should only be made within the same method. Triage - EDon 02-25-2021 Triage - ED Quick Triage: Are You no Have You Given In The Last 6 Weeksno Are You Currently Breastfeedingno The patient and/or guardian verbally acknowledges placement for services into the following (when Urgent Care Service hours are operating):emergency department Chart Review: PRIMARY ASSESSMENT ABCD Normal Findings: airway open and patent, breathing normal, circulation normal and alert and oriented ARRIVAL INFORMATION Mode of Arrival: private vehicle CHIEF COMPLAINT SOPHIA ALLEN is a Female patient with a chief complaint of suicidal attempt (pt to ER with report of taking 3 Lexapro last night so she would feel better--pt has very flat affect and is stating she is always depressed and always suicidal but has no plan--pt will be watched and evaluated by Rajinder). Triage Date/Time: 25-Feb-2021 16:55 CHELSEA: 2 Pain Rating (0-10): 0 = None Vital Signs: Temperature: 98.0F ( 36.6C) taken oral Heart Rate: 126 Respiratory Rate: 17 Pulse Oximetry: 98% on room air, no respiratory support. Height: 5 feet 3 inches. 160.0 CM Weight: 112.2 pounds. Calculated 50.9 kg. (stated) Calculated BMI (kg/m2): 19.882 Calculated BSA (m2) 1.50 Eliseo Coma Scale: Best Eye Response: (E4) spontaneous Best Motor Response: (M6) obeys commands Best Verbal Response: (V5) oriented [place] Score: 15 Cough lasting greater than 3 weeks: no Allergies: no Mask applied: yes Last menstrual period: 25-Jan-2021 Patient has homicidal thoughts: no Symptoms Are POSITIVE For: depression and suicidal thoughts. Symptoms Are Negative For: agitated, anorexia, confusion, fatigue, hallucinations and withdrawn. Risk Screens Suicide Risk Screen In the Past Month: Have you wished you were or wished you could go to sleep and not wake up yes In the Past Month: Have you had any actual thoughts of killing yourself yes In the Past Month: Have you been thinking about how you might do this yes In the Past Month: Have you had these thoughts and had some intention of acting on them no In the Past Month: Have you started to work out or worked out the details of how to kill yourself Do you intend to carry out this plan no In Your Lifetime: Have you ever done anything, started to do anything, or prepared to do anything to end your life no Suicide Risk Interventions Low Suicide Risk Interventions: consider behavioral health resources will be given at discharge Moderate Suicide Risk Interventions: Interventions initiated: comfort care provided, items from room which may be used to harm self removed, patient placed in an easily observable room with curtain remaining open, patient placed in gown and wanded, provider notified, remaining risks identified and mitigated, therapeutic diversion offered (puzzles, games, journaling, TV blank box) elopement risk identified; family/visitor advised to maintain control of own personal belongings in room; finger food diet enforced; frequent rounding with irregular checks at a minimum of every 15 minutes to assess psych safety performed (patient easily observed); hourly behavioral assessment performed; patient observer at bedside, verbal handoff given; patient placed in psych safe room; personal belongings secured and visitors limited when necessary and personal items screened icon moderate High Suicide Risk Interventions: patient under constant observation at all timesicon high Items removed from room: bedside table/carts, bulletin board push pins and tasks, cleaning solutions/chemicals, coat hangers, gloves, IV poles, linen bin, loose cords (monitor cords, electric, tubing), otoscope, oxygen/oxygen canister, plastic bags (including trash bags), suction regulators, sharp or glass objects, sharps container, and scissors and cell phone Remaining risks identified and mitigated: bed/stretcher; call light cords; ceiling tiles; door handles/closers; electrical outlets; monitors and cords; TV bracket and cords; vents and window fixture Buchanan Fall Scale Screening Has the patient fallen before (or is the patient in the ED as a result of a fall) has not had a fall Does the patient have an impaired gait does not have impaired gait Is the patient cognitively impaired not cognitively impaired Interventions: Buchanan Fall Interventions: LOW INTERVENTIONS: *patient oriented to surroundings and call system, * patient/family falls education completed and documented, *patients fall status communicated during bedside handoff, *whiteboard updated, *mode of toileting discussed with patient, *bed in low position with brakes locked, *call light in reach, * non-skid footwear TRAVEL HISTORY Travel History Coronavirus Screening: no exposure or symptoms Travel Exposure History: NO travel to International locations in the past 30 days PAIN Pain Scale Used: SIXTO Pain Rating (0-10): 0 = None (more content not included)... Normal [facility] Troponin I, Serumon 02-26-20 21 Troponin I.cardiac [Mass/Vol] ng/mL See Below [facility] Internal Medicine Work Phone: Comment on above: Reference Range: 0.0 0 - 0.03LESS THAN 0.04 NG/ML: NEGATIVEREPEAT TESTING IN THREE TO SIX HOURSIF CLINICALLY INDICATED.0.04 - 0.5 NG/ML: CONSISTENT WITH POSSIBLECARDIAC DAMAGE AND POSSIBLE INCREASEDCLINICAL RISK.SERIAL MEASUREMENTS MAY HELP ASSESS EXTENT OFMYOCARDIAL DAMAGE.>0.5 NG/ML: CONSISTENT WITH CARDIAC DAMAGE,INCREASED CLINICAL RISK AND MYOCARDIALINFARCTION. SERIAL MEASUREMENTS MAY HELPASSESS EXTENT OF MYOCARDIAL DAMAGE..Note: Troponin I testing is performed using different testing methodology at [facility] than at other [facility]. Direct result comparisons should only be made within the same method. UA MICROSCOPICon 02-25-2021 BACTERIA 2+ /HPF Abnormal [facility] Comment on above: Performed By: #### U AMIC #### [address] [address] RBC 17 /HPF Abnormal 0-5 [facility] Comment on above: Performed By: #### U AMIC #### [address] [address] SQUAMOUS EPITH. CELLS 3 /HPF Normal [facility] Comment on above: Performed By: #### U AMIC #### [address] [address] WBC 2 /HPF Normal 0-5 [facility] Comment on above: Performed By: #### U AMIC #### [place] [address] URINALYSIS WITH CULTURE IF I NDICATEDon 02-25-2021 Appearance (U) CLEAR Normal CLEAR [facility] Comment on above: Performed By: #### V TDOH #### [address] [address] Bilirubin Ql (U) Negative Normal NEGATIVE [facility] Comment on above: Performed By: #### V TDOH #### [place] [id number] Color (U) Straw Normal STRAW,YELLOW [facility] Comment on above: Performed By: #### V TDOH #### [address] [address] Glucose Ql (U) Negative Normal NEGATIVE [facility] Comment on above: Performed By: #### V TDOH #### [place] [address] Hemoglobin Ql (U) LARGE(3+) Abnormal NEGATIVE [facility] Comment on above: Performed By: #### V TDOH #### [place] [id number] Ketones Ql (U) Negative Normal NEGATIVE [facility] Comment on above: Performed By: #### V TDOH #### [place] [address] Leukocyte esterase Test strip Ql (U) TRACE Abnormal NEGATIVE [facility] Comment on above: Performed By: #### V TDOH #### [address] [address] Nitrite Ql (U) Negative Normal NEGATIVE [facility] Comment on above: Performed By: #### V TDOH #### [address] [address] pH (U) 6.0 [pH] Normal 5.0 - 8.0 [facility] Comment on above: Performed By: #### V TDOH #### [address] [address] Protein Ql (U) Negative Normal NEGATIVE [facility] Comment on above: Performed By: #### V TDOH #### [place] [address] Specific gravity (U) [Rel density] 1.005 Normal 1.005 - 1.035 [facility] Comment on above: Performed By: #### V TDOH #### [address] [address] Urobilinogen (U) [Mass/Vol] mg/dL Normal 0.0 - 1.9 [facility] Comment on above: Performed By: #### V TDOH #### [address] [address] Color (U) Straw See Below [facility] Internal Medicine Work Phone: Comment on above: Reference Range: STR AW,YELLOW Glucose Ql (U) Negative NEGATIVE [facility] Internal Medicine Work Phone: Ketones Ql (U) Negative NEGATIVE [facility] Internal Medicine Work Phone: Leukocyte esterase Test strip Ql (U) TRACE Abnormal NEGATIVE [facility] Work Phone: pH (U) 6.0 [pH] 5.0 - 8.0 [facility] Internal Medicine Work Phone: Protein (U) [Mass/Vol] Negative NEGATIVE [facility] Work Phone: RBC (U) [#/Vol] LARGE(3+) Abnormal NEGATIVE [facility] Internal Medicine Work Phone: Specific gravity (U) [Rel density] 1.005 1 See Below [facility] Medicine Work Phone: Comment on above: Reference Range: 1.0 05 - 1.035 URINALYSIS WITH CULTURE IF INDICATED Negative NEGATIVE [facility] Work Phone: Comment on above: CUTOFF LEVEL: 1 NG/M L The performance characteristics of this test have been determined by the individual laboratory site where testing is performed. This test has not been cleared or approved by the FDA; however, the FDA has determined that such clearance is not necessary. URINALYSIS WITH CULTURE IF INDICATED <2.0 0.0 - 1.9 [facility] Work Phone: URINALYSIS WITH CULTURE IF INDICATED CLEAR CLEAR [facility] Internal Medicine Work Phone: URINE CULTURE,BACTERIALon URINE CULTURE,BACTERIAL PATIENT: SOPHIA ALLEN LOCATION: [facility] MARIE#: [id number] : 89 AGE: SEX: F ORDERED BY: JAZLYN BRISCOE SOURCE: URINE COLLECTED: 02/25/21 17:45 ANTIBIOTICS AT [facility].: RECEIVED : 02/25/21 23:19 SITE: R E S U L T S URINE CULTURE,BACTERIAL FINAL 02/26/21 17:32 NO GROWTH Normal [facility] Comment on above: Performed By: #### C BCDF #### [address] [address] Urinalysis, Microscopicon Urinalysis, Microscopic 2+ Abnormal [facility] Medicine Work Phone: Urinalysis, Microscopic 3 {/HPF} [facility] Work Phone: Urinalysis, Microscopic 17 {/HPF} Abnormal 0-5 [facility] Medicine Work Phone: Urinalysis, Microscopic 2 {/HPF} 0-5 [facility] Medicine Work Phone: Urine Teston 02-25 HCG ( test) Ql (U) Negative Negative [facility] Medicine Work Phone: VITAMIN D, 25-HYDROXYon 12-21 VITAMIN D, 25-HYDROXY 106 ng/mL Abnormal [facility] Comment on above: Result Comment: . DEFICIENCY: < 20 NG/ML INSUFFICIENCY: 20-29 NG/ML SUFFICIENCY: 30-100 NG/ML THIS ASSAY ACCURATELY QUANTIFIES THE SUM OF VITAMIN D3, 25-HYDROXY AND VIT D2,25-HYDROXY. Performed By: #### V TDOH #### [address] [address] CBC AND DIFFERENTIALon 12-16 Basophils (Bld) [#/Vol] 0.00 10*3/uL Normal 0.00 - 0.10 [facility] Comment on above: Performed By: #### V TDOH #### [address] [address] Basophils/100 WBC (Bld) 0.3 % Normal 0.0 - 2.0 [facility] Comment on above: Performed By: #### V TDOH #### [address] [address] Eosinophils (Bld) [#/Vol] 0.20 10*3/uL Normal 0.00 - 0.70 [facility] Comment on above: Performed By: #### V TDOH #### [address] [address] Eosinophils/100 WBC (Bld) 2.8 % Normal 0.0 - 6.0 [facility] Comment on above: Performed By: #### V TDOH #### [address] [address] Erythrocyte distribution width (RBC) [Ratio] 13.1 % Normal 11.5 - 14.5 [facility] Comment on above: Performed By: #### V TDOH #### [address] [address] Hematocrit (Bld) [Volume fraction] 44.8 % Normal 36.0 - 46.0 [facility] Comment on above: Performed By: #### V TDOH #### [address] [address] Hemoglobin (Bld) [Mass/Vol] 14.5 g/dL Normal 12.0 - 16.0 [facility] Comment on above: Performed By: #### V TDOH #### [address] [address] Lymphocytes (Bld) [#/Vol] 1.80 10*3/uL Normal 1.20 - 4.80 [facility] Comment on above: Performed By: #### V TDOH #### [address] [address] Lymphocytes/100 WBC (Bld) 25.6 % Normal 13.0 - 44.0 [facility] Comment on above: Performed By: #### V TDOH #### [address] [address] MCHC (RBC) [Mass/Vol] 32.5 g/dL Normal 32.0 - 36.0 [facility] Comment on above: Performed By: #### V TDOH #### [address] [address] MCV (RBC) [Entitic vol] 92 fL Normal 80 - 100 [facility] Comment on above: Performed By: #### V TDOH #### [address] [address] Monocytes (Bld) [#/Vol] 0.30 10*3/uL Normal 0.10 - 1.00 [facility] Comment on above: Performed By: #### V TDOH #### [address] [address] Monocytes/100 WBC (Bld) 4.7 % Normal 2.0 - 10.0 [facility] Comment on above: Performed By: #### V TDOH #### [address] [address] Neutrophils (Bld) [#/Vol] 4.60 10*3/uL Normal 1.20 - 7.70 [facility] Comment on above: Result Comment: Perc ent differential counts (%) should be interpreted in the context of the absolute cell counts (cells/L). Performed By: #### V TDOH #### [address] [address] Neutrophils/100 WBC (Bld) 66.6 % Normal 40.0 - 80.0 [facility] Comment on above: Performed By: #### V TDOH #### [address] [address] NUCLEATED RBC 0.1 /100 WBC Normal [facility] Comment on above: Performed By: #### V TDOH #### [address] [address] Platelets (Bld) [#/Vol] 176 10*3/uL Normal 150 - 450 [facility] Comment on above: Performed By: #### V TDOH #### [address] [address] RBC 4.85 x10E12/L Normal 4.00 - 5.20 [facility] Comment on above: Performed By: #### V TDOH #### [address] [address] WBC (Bld) [#/Vol] 6.9 10*3/uL Normal 4.4 - 11.3 [facility] Comment on above: Performed By: #### V TDOH #### [address] [address] COMPREHENSIVE PANELon 2020 Albumin [Mass/Vol] 4.6 g/dL Normal 3.4 - 5.0 [facility] Comment on above: Performed By: #### V TDOH #### [address] [address] ALP [Catalytic activity/Vol] 47 U/L Normal 33 - 110 [facility] Comment on above: Performed By: #### V TDOH #### [address] [address] ALT [Catalytic activity/Vol] 12 U/L Normal 7 - 45 [facility] Comment on above: Result Comment: Rosi ents treated with Sulfasalazine may generate falsely decreased results for ALT. Performed By: #### V TDOH #### [address] [address] Anion gap [Moles/Vol] 9 mmol/L Low 10 - 20 [facility] Comment on above: Performed By: #### V TDOH #### [address] [address] AST [Catalytic activity/Vol] 13 U/L Normal 9 - 39 [facility] Comment on above: Performed By: #### V TDOH #### [address] [address] Bilirubin [Mass/Vol] 0.6 mg/dL Normal 0.0 - 1.2 [facility] Comment on above: Performed By: #### V TDOH #### [address] [address] Calcium [Mass/Vol] 9.6 mg/dL Normal 8.6 - 10.3 [facility] Comment on above: Performed By: #### V TDOH #### [address] [address] Chloride [Moles/Vol] 104 mmol/L Normal 98 - 107 [facility] Comment on above: Performed By: #### V TDOH #### [address] [address] Creatinine [Mass/Vol] 0.80 mg/dL Normal 0.50 - 1.05 [facility] Comment on above: Performed By: #### V TDOH #### [address] [address] GFR- AM. >60 Normal >60 [facility] Comment on above: Result Comment: CALC ULATIONS OF ESTIMATED GFR ARE PERFORMED USING THE MDRD STUDY EQUATION FOR THE IDMS-TRACEABLE CREATININE METHODS. CLIN CHEM 2007;53:766-72 Performed By: #### V TDOH #### [address] [address] GFR-NON AM. >60 Normal >60 [facility] Comment on above: Performed By: #### V TDOH #### [address] [address] Glucose [Mass/Vol] 80 mg/dL Normal 74 - 99 [facility] Comment on above: Performed By: #### V TDOH #### [address] [address] HCO3 (Bld) [Moles/Vol] 28 mmol/L Normal 21 - 32 [facility] Comment on above: Performed By: #### V TDOH #### [address] [address] Potassium [Moles/Vol] 4.2 mmol/L Normal 3.5 - 5.3 [facility] Comment on above: Performed By: #### V TDOH #### [place] [address] Protein [Mass/Vol] 7.1 g/dL Normal 6.4 - 8.2 [facility] Comment on above: Performed By: #### V TDOH #### [address] [address] Sodium [Moles/Vol] 137 mmol/L Normal 136 - 145 [facility] Comment on above: Performed By: #### V TDOH #### [address] [address] Urea nitrogen [Mass/Vol] 15 mg/dL Normal 6 - 23 [facility] Comment on above: Performed By: #### V TDOH #### [address] [address] FOLATE, SERUMon 12-16-2020 Folate [Mass/Vol] 23.2 ng/mL Normal >5.0 [facility] Comment on above: Result Comment: Low <3.4 Borderline 3.4-5.0 Normal >5.0 . Patients receiving more than 5 mg/day of biotin may have interference in test results. A sample should be taken no sooner than eight hours after previous dose. Contact the testing laboratory for additional information. Performed By: #### F OLA2 #### [address] [address] THYROXINE,FREEon 12-16-2020 THYROXINE,FREE 0.82 ng/dL Normal 0.61 - 1.12 [facility] Comment on above: Result Comment: Thyr oxine Free testing is performed using different testing methodology at [facility] than at other [facility]. Direct result comparisons should only be made within the same method. . Biotin can cause falsely elevated free T4 results. Patients taking a Biotin dose of up to 10 mg/day should refrain from taking Biotin for 24 hours before sample collection. Patient taking a Biotin dose of >10 mg/day should consult with their physician or the laboratory before the blood draw. Performed By: #### V TDOH #### [address] [address] TRIIODOTHYRONINE,FREEon - TRIIODOTHYRONINE,FR EE 3.0 pg/mL Normal 2.3 - 4.2 [facility] Comment on above: Performed By: #### T 3FRE #### [facility] [address] [place] [address] TSHon 12-16-2020 TSH Qn 1.96 m[IU]/L Normal 0.44 - 3.98 [facility] Comment on above: Result Comment: TSH testing is performed using different testing methodology at [facility] than at other [facility]. Direct result comparisons should only be made within the same method. Performed By: #### T SH2 #### [address] [address] VITAMIN B12on 12-16-2020 Cobalamin (Vitamin B12) [Mass/Vol] 714 pg/mL Normal 211 - 911 [facility] Comment on above: Performed By: #### V TDOH #### [address] [address] VITAMIN D, 25-HYDROXYon 11-22 VITAMIN D, 25-HYDROXY 124 ng/mL Abnormal [facility] Comment on above: Result Comment: . DEFICIENCY: < 20 NG/ML INSUFFICIENCY: 20-29 NG/ML SUFFICIENCY: 30-100 NG/ML THIS ASSAY ACCURATELY QUANTIFIES THE SUM OF VITAMIN D3, 25-HYDROXY AND VIT D2,25-HYDROXY. Performed By: #### V TDOH #### [address] [address] CNOVon 10-28-2020 CNOV Office Visit (CECY ) SOPHIA ALLEN ([id number]) 1990 F Date Time Provider Department 10/28/20 9:30 AM KRISTINA SPENCE During your visit today, we recorded the following information about you: Pulse Blood pressure Weight Height 88/minute 110/76 52.2 kg 1.6 m Last Period 10/26/20 Kristina Spence MD, MD 10/28/2020 1:21 PM Signed Female Pelvic Medicine AND Reconstructive Surgery Follow-Up Sophia Allen is a 30 year old female, who presents for a follow-up of recurrent UTI. Last visit 07/22/2020: IMPRESSION: Sophia Allen is a 29 year old female with Recurrent UTI. PLAN: 1. Start Macrodantin 50mg daily for prophylaxis x 3 months 2. Standing order for urine culture placed in [facility]. If Sophia has urinary tract symptoms, she should go to a [facility] lab, leave a urine sample and call or [facility] message me. 3. Will consider adding Ellura (36mg PAC Cranberry pills) or D-mannose if she has break-through UTIs 4. Will also consider CT Abdomen/Pelvis and cystoscopy if patient has breakthrough UTIs 5. Follow-up with me in 3 months History since last visit: Pt has been on 3 months of Macrodantin and denies any UTIs. She thought that she had UTI a few weeks ago but her urine culture was negative and symptoms were more like a yeast infection. Pt reports that she has had more yeast infections while on the antibiotics. She is currently taking D3/K2 which she thinks has helped her symptoms. 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 Kristina Spence MD, MD Plateman offered: Patient declines. OBJECTIVE: BP 110/76 Pulse 88 Ht 5' 3 (1.60m) Wt 115 lb (52.2kg) SpO2 98% LMP 10/26/2020 BMI 20.38 kg/(m2). General: Well appearing, alert, in no acute distress, well-hydrated, well nourished. Abdomen: Abdomen soft, non-tender Impression: Sophia Allen is a 30 year old female with Recurrent UTIs. Pt did not have any breakthrough UTIs on antibiotics so do not think that she needs CT Abdomen/Pelvis and cystoscopy. She would like to continue D3/K2 and start probiotics. She will defer cranberry pills, D-mannose or Hiprex for now. Plan: 1. Standing order for urine culture placed in [facility]. If Sophia has urinary tract symptoms, she should go to a [facility] lab, leave a urine sample and call or [facility] message me. 2. If she has more UTIs after finishing course of antibiotics, then will consider adding Ellura (36mg PAC Cranberry pills), D-mannose or Hiprex 3. Will send Diflucan 150mg every 72 hours x 2 doses with refills to pharmacy 4. Follow-up as needed I spent a total of 30 minutes on the date of the service which included preparing to see the patient, [id number] patient care, completing clinical documentation, obtaining and/or reviewing separately obtained history, counseling and educating the patient/family/caregiv er and ordering medications, tests, or procedures Kristina Spence MD Referring Provider: SELF [[id number]] Allergies As of Date: 10/28/2020 Noted Allergy Reaction ZOVIRAX (ACYCLOVIR) 11/18/2010 2 - Rash Date Reviewed: 10/28/2020 Reviewed by: Roseanna Coombs Ma - Fully Assessed Reason for Visit: F/U 3 months [1176] Cmt: UTI frequency Reason For Visit History Recorded Primary Visit Diagnosis:Recurrent UTI [N39.0] Other Visit Diagnosis:Vaginal yeast infection [B37.3] Order(s):fluconazole (DIFLUCAN) 150 mg tabletTake 1 tablet by mouth every 72 hours.Disp: 2 tabletRfl: 4 Prescriptions as of 10/28/2020 Sig: D3 + K2 DOTS ORAL Take by mouth. FLUCONAZOLE 150 MG TABLET Take 1 tablet by mouth every * NITROFURANTOIN MACROCRYSTAL 5* Take 1 capsule by mouth once * Patient not taking: Reported on 10/28/2020 ORTHO TRI-CYCLEN LO (28) 0.18* Take 1 tablet by mouth once d* Patient not taking: Reported on 04/22/2020 PROBIOTIC 4X ORAL Take by mouth. 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 Cervical high risk HPV (human papillomavirus) t*10/03/2013 Prescriptions ordered this encounter Disp Refills Start End FLUCONAZOLE 150 MG TABLET 2 ta* 4 10/28/2020 Route: ORAL Sig: Take 1 tablet by mouth every 72 hours. Encounter Status:Closed by KRISTINA SPENCE MD (more content not included)... 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 She read MyChart- she reports symptoms of frequency and burning with urination and has for a few weeks now. Denies fever or chills. Denies flank or back pain at this time. Sending update to Chris. JOSIE Martinez APRN.[facility] 10/04/2020 5:06 PM Signed Antibiotic prescription e-rx'd to local pharmacy on file. My chart update sent. Allergies As of Date: 10/04/2020 Noted Allergy Reaction ZOVIRAX (ACYCLOVIR) 11/18/2010 2 - Rash Date Reviewed: 07/22/2020 Reviewed by: Senia Masters MA - Fully Assessed Reason for Visit: Results [95] Primary Visit Diagnosis:Acute cystitis without hematuria [N30.00] Order(s):amoxicillin (POLYMOX, AMOXIL) 250 mg capsuleTake 1 capsule by mouth three times daily for 7 days.Disp: 21 capsuleRfl: 0 Prescriptions as of 10/04/2020 Sig: AMOXICILLIN 250 MG CAPSULE Take 1 capsule by mouth three* NITROFURANTOIN MACROCRYSTAL 5* Take 1 capsule by mouth once * ORTHO TRI-CYCLEN LO (28) 0.18* Take 1 tablet by mouth once d* Patient not taking: Reported on 04/22/2020 PROBIOTIC 4X ORAL Take by mouth. 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 Cervical high risk HPV (human papillomavirus) t*10/03/2013 Prescriptions ordered this encounter Disp Refills Start End AMOXICILLIN 250 MG CAPSULE 21 c* 0 10/04/2020 10/11/2020 Route: ORAL Sig: Take 1 capsule by mouth three times daily for 7 days. Encounter Status:Closed by CHRIS HINSON CNP on 10/04/20 Normal [facility] Urine Cultureon 10-02-2020 Bacteria identified Cx Nom (U) Sp. Request/Comment: - Specimen received in preservative Culture Result - <10,000 CFU/ml Streptococcus agalactiae (Group B streptococcus) --> ABNORMAL ALERT No further workup --> ABNORMAL ALERT Critically abnormal [facility] Comment on above: Performed By: #### U RCUL #### [facility] [address] [address] Provider Note - ED v2on 09-0 Provider Note - ED v2 Provider Note - ED v2: Chart Review: ED NOTES ED NOTES: HPI: 29-year-old female chief complaint of right ear pain, possible infection. She states she has some swelling around 2 of her earrings in the right ear. States is been going off and on for a couple weeks but tonight around 10 it increased. She has had those earrings in for approximately 1 year. There are no backs on these earrings. She needs to go to a special establishment and have them put in and removed. ROS: All systems are negative other than as noted in HPI. Physical Exam I have reviewed the triage vital signs. Const: Well nourished, well developed, appears stated age, no acute distress Eyes: PERRL, EOM intact, no conjunctival injection, vision grossly normal HENT: Neck supple without meningismus , Moist mucous membranes, no pharyengeal swelling or exudate CV: Regular rate and rhythm, Warm, well-perfused extremities. Chest non tender RESP: Lungs clear bilaterally, Unlabored respiratory effort GI: soft, non-tender, non-distended, no masses : MSK: No gross deformities appreciated Skin: Warm, dry. No rashes. Evaluation of the right ear reveals inflammation around to earrings that are in the tragus of the right ear. The tragus is inflamed and tender and erythematous. These earrings do not have backs on them. No drainage. 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 Sensation and motor function of extremities grossly intact. Psych: Appropriate mood and affect. HISTORY OF PRESENTING ILLNESS SOPHIA is a 29 year old Female and was seen by me at 26-Apr-2020 01:30 for a chief complaint of ear pain (PT TO ED WITH C/O RIGHT EAR PAIN AND SWELLING OFF AND ON X2 WEEKS.)(1). Triage Information: Most recent Vital Sign Value Date Temp (F): 97.9 04-26-2020 01:36 Temp (C): 36.6 04-26-2020 01:36 Heart Rate (beats/min): 91 04-26-2020 01:36 Respirations (breaths/min): 18 04-26-2020 01:36 SpO2 (%): 100 04-26-2020 01:36 BP Systolic (mm Hg): 119 04-26-2020 01:36 BP Diastolic (mm Hg): 77 04-26-2020 01:36 PAST MEDICAL HISTORY ATTESTATION: I have reviewed and confirmed nurse's/medic's notes for patient's medications, allergies, medical history, and surgical history ALLERGIES/INTOLERANCES : No Known Allergies HEALTH HISTORY: No documented data. 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 CLINICAL IMPRESSION Diagnosis/Annotation: ED Dx Name:Cellulitis of face Code:L03.211 Dispostion: discharged Type: home ATTESTATION CRITICAL CARE TIME Is this a critically ill patient: no Electronic Signatures: Terrell Santos) (Signed 26-Apr-2020 01:49) Authored: Provider Note - ED v2 Last Updated: 26-Apr-2020 01:49 by Terrell Santos () References: 1. Data Referenced From Triage - ED 26-Apr-2020 01:36 [facility] Risk Screen - Adult Emergenc yon 04-26-2020 Risk Screen - Adult Emergency Preferred Language: Preferred Language: Preferred Language for Discussing Health Care (patient/designee)Engl genesis Advanced Directives: Advance Directive/DNRno Family Violence Adult: Abuse Screen: Are you or have you been threatened or abused physically, emotionally, or sexually by anyoneno Learning Assessment (Patient): Learning Assessment (Patient): Patient is Able to be Assessed for Learningyes Factors Influencing Readiness to Learnacuteness of illness; interest in learning Factors that Impact Ability to Learnnone Devices/Methods Used to Communicatenone Learning Preferencesverbal instruction; written material Cultural Considerationsnone Developmental Considerationsnone Mandaen Considerationsnone Learning Assessment (Other Learner): Learning Assessment (Other Learner): Other learner availableno Pressure Injury/TB/Substance: Pressure Injury: Do you have a coughno Admission Risk Screen: Significant IndicatorsComplete CAGE: CAGE: Is this an injured patient at a Trauma Center ([facility]/[place]): no Electronic Signatures: Mary Guthrie (JOSIE) (Signed 26-Apr-2020 01:41) Authored: Preferred Language, Advanced Directives, Family Violence Adult, Learning Assessment (Patient), Learning Assessment (Other Learner), Pressure Injury/TB/Substance, CAGE Last Updated: 26-Apr-2020 01:41 by Mary Guthrie (JOSIE) [facility] Triage - EDon 04-26-2020 Triage - ED Quick Triage: Are You yes Have You Given In The Last 6 Weeksno Are You Currently Breastfeedingno The patient and/or guardian verbally acknowledges placement for services into the following (when Urgent Care Service hours are operating):emergency department Chart Review: PRIMARY ASSESSMENT SOPHIA ALLEN's primary assessment is Within Defined Limits. The airway is open and patent. Breathing spontaneous and unlabored with clear breath sounds bilaterally. Circulation is normal with good peripheral pulses. Skin is warm and dry and color is normal for race. 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 Triage Date/Time: 26-Apr-2020 01:25 Pain Rating (0-10): 7 = Severe Pain location: RIGHT EAR Vital Signs: Temperature: 97.9F ( 36.6C) taken temporal Blood Pressure: 119/77 Mean: Heart Rate: 91 Respiratory Rate: 18 Pulse Oximetry: 100% on room air, no respiratory support. Height: 5 feet 3.00 inches. 160.0 CM Weight: 114.6 pounds. Calculated 52.0 kg. 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 Risk Screens Suicide Risk Screen In the Past Month: Have you wished you were or wished you could go to sleep and not wake up no In the Past Month: Have you had any actual thoughts of killing yourself no In Your Lifetime: Have you ever done anything, started to do anything, or prepared to do anything to end your life no Buchanan Fall Scale Screening Has the patient fallen before (or is the patient in the ED as a result of a fall) has not had a fall Does the patient have an impaired gait does not have impaired gait Is the patient cognitively impaired not cognitively impaired Interventions: Buchanan Fall Interventions: LOW INTERVENTIONS: *patient oriented to surroundings and call system, * patient/family falls education completed and documented, *patients fall status communicated during bedside handoff, *whiteboard updated, *mode of toileting discussed with patient, *bed in low position with brakes locked, *call light in reach, * non-skid footwear PAST MEDICAL HISTORY Immunization History: Last Known Tetanus Immunization: Greater than 5 years but less than 10 years TRAVEL HISTORY Travel History Coronavirus Screening: no exposure or symptoms Travel Exposure History: NO travel to International locations in the past 30 days PAIN Pain Scale Used: SIXTO Pain Rating (0-10): 7 = Severe Past Medical History: Past Medical History Reviewedyes KIDNEY STONES: Past Medical History, Active Electronic Signatures: Mary Guthrie (RN) (Signed 26-Apr-2020 01:39) Authored: Triage, Past Medical History Last Updated: 26-Apr-2020 01:39 by Mary Guthrie (JOSIE) [facility] MRI Breast w/o Contrast Bila teralon 02-17-2019 MRI Breast w/o Contrast Bilateral Exam Date/Time: 02/17/2019 14:13 EDT Reason for Exam: BREAST PAIN SWELLING POST AUGMENTATION 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 Patient had breast augmentation 10/10/2018 COMPARISON: None. TECHNIQUE: STIR axial and coronal, T1 axial, sagittal T2 fat suppressed, water suppressed and silicone suppressed images were obtained. No intravenous contrast was administered. FINDINGS: Please note that this exam was performed strictly to evaluate implant integrity and is not tailored to evaluate for malignancy. There is no MRI evidence of intracapsular or extracapsular implant rupture. No abnormal fluid collections are identified. Incidental note is made of a T2 bright 6 mm mass in the upper outer quadrant left breast at posterior depth. This may represent a small cyst. IMPRESSION: No MRI evidence of intracapsular or extracapsular rupture in either breast. Clinical follow-up is recommended for the patient's symptoms. Please note that this study does not evaluate for or exclude breast cancer as no contrast was administered. FINAL REPORT Dictated: 02/17/2019 2:37 pm Gia Andres MD Signed (Electronic Signature): 02/17/2019 2:37 pm Signed by: Gia Andres MD Technologist: JOSÉ Normal [facility] US BREAST RIGHT LIMITEDon US BREAST RIGHT LIMITED EXAMINATION: TARGETED ULTRASOUND OF THE RIGHT BREAST 12/09/2018 COMPARISON: None. HISTORY: Pain. Initial exam. FINDINGS: Targeted sonographic evaluation demonstrates no evidence of solid or cystic mass. No abnormal shadowing pattern. There is no evidence of axillary lymphadenopathy. The implant is grossly intact. IMPRESSION: No suspicious abnormality. BIRADS: BIRADS - CATEGORY 2 Benign, no evidence of malignancy. Normal interval follow-up is recommended at age 40. OVERALL ASSESSMENT - BENIGN [employer] Workstation ID: [id number] Dictated by: KANA AUGUSTINE on WedDec 09, 2018 11:08:10 AM EDT Transcribed by: WES MACIAS on WedDec 09, 2018 11:12:55 AM EDT Finalized by: KANA AUGUSTINE on WedDec 09, 2018 12:16:46 PM EDT [facility] US Breast Right Limitedon No suspicious abnormality. BIRADS: BIRADS - CATEGORY 2 Benign, no evidence of malignancy. Normal interval follow-up is recommended at age 40. OVERALL ASSESSMENT - BENIGN [employer] Workstation ID: [id number] [facility] EXAMINATION: TARGETE D ULTRASOUND OF THE RIGHT BREAST 12/09/2018 COMPARISON: None. HISTORY: Pain. Initial exam. FINDINGS: Targeted sonographic evaluation demonstrates no evidence of solid or cystic mass. No abnormal shadowing pattern. There is no evidence of axillary lymphadenopathy. The implant is grossly intact. [facility] XR Wrist 2 Views Lefton 09-23 XR Wrist 2 Views Left Exam Date/Time: 10/06/2018 08:08 EST Reason for Exam: Fracture Report STUDY: XR Wrist 2 Views Left; 10/06/2018 8:08 am INDICATION: Fracture. COMPARISON: 09/08/2018 ACCESSION NUMBER(S): [id number] ORDERING CLINICIAN: Vandana Resendez TECHNIQUE: 2 views of the left wrist including AP and lateral projections were obtained. FINDINGS: Evaluation of osseous detail is limited by overlying casting material. A minimally displaced transverse fracture is again seen through the distal left radial metaphysis, grossly unchanged in alignment from the prior study. There has been interval development of sclerosis at the fracture site. There is no evidence of new fracture or dislocation identified. IMPRESSION: 1. Distal left radial metaphyseal fracture, as above. FINAL REPORT Dictated: 10/06/2018 3:45 pm Montrell Hernandez MD Signed (Electronic Signature): 10/06/2018 3:45 pm Signed by: Montrell Hernandez MD Technologist: Jodie [facility] XR Wrist 3+ Views Lefton XR Wrist 3+ Views Left Exam Date/Time: 09/08/2018 09:15 EST Reason for Exam: Fracture Report STUDY: XR Wrist 3+ Views Left;; 09/08/2018 9:15 am INDICATION: Fracture. COMPARISON: None. ACCESSION NUMBER(S): [id number] ORDERING CLINICIAN: Johnnie Curtis FINDINGS: Left wrist through plaster-AP, lateral and oblique views: A fracture line is not visualized. No displacement is present. No prior radiographs are available. IMPRESSION: No displaced fracture. Fracture line not visualized. FINAL REPORT Dictated: 09/08/2018 9:33 am Socrates Haas MD Signed (Electronic Signature): 09/08/2018 9:33 am Signed by: Socrates Haas MD Technologist: [facility] Vital Signs Date Time Vital Sign Value Performing Clinician Facility 04-07-2021 14:28-0400 Body height 160.02 cm Apolinar Alas Work Phone: [facility] Work Phone: 04-07-2021 14:28-0400 Body mass index (BMI) [Ratio] 19.84 kg/m2 Apolinar Alas Work Phone: [facility] Work Phone: 04-07-2021 14:28-0400 Body surface area Derived from formula 1.51 m2 Apolinar Alas Work Phone: [facility] Work Phone: 04-07-2021 14:28-0400 Body weight 50.8 kg Apolinar Rosy Tavallaee Work Phone: [facility] Work Phone: 04-07-2021 14:28-0400 Diastolic blood pressure 70 mm[Hg] Apolinar Rosy [place] Work Phone: [facility] Work Phone: 04-07-2021 14:28-0400 Heart rate 92 /min Apolinar Rosy [place] Work Phone: [facility] Work Phone: 04-07-2021 14:28-0400 Systolic blood pressure 104 mm[Hg] Apolinar M Tavallaee Work Phone: [facility] Work Phone: 03-03-2021 12:39-0400 Body height 160.02 cm Apolinar Rosy [place] Work Phone: [facility] Work Phone: 03-03-2021 12:39-0400 Body mass index (BMI) [Ratio] 19.49 kg/m2 Apolinar M Tavallaee Work Phone: [facility] Work Phone: 03-03-2021 12:39-0400 Body surface area Derived from formula 1.5 m2 Apolinar M Tavallaee Work Phone: [facility] Work Phone: 03-03-2021 12:39-0400 Body weight 49.9 kg Apolinar M Tavallaee Work Phone: [facility] Work Phone: 03-03-2021 12:39-0400 Diastolic blood pressure 88 mm[Hg] Apolinar M Tavallaee Work Phone: [facility] Work Phone: 03-03-2021 12:39-0400 Heart rate 91 /min Apolinar M Tavallaee Work Phone: [facility] Work Phone: 03-03-2021 12:39-0400 Systolic blood pressure 120 mm[Hg] Apolinar M Tavallaee Work Phone: [facility] Work Phone: 02-25-2021 23:10-0400 Diastolic blood pressure 60 mm[Hg] Apolinar Tavallaee Other Phone: [facility] 02-25-2021 23:10-0400 Heart rate 92 /min Apolinar Tavallaee Other Phone: [facility] 02-25-2021 23:10-0400 Respiratory rate 16 /min Apolinar Tavallaee Other Phone: [facility] 02-25-2021 23:10-0400 SaO2% (BldA) [Mass fraction] 98 % Apolinar Tavallaee Other Phone: [facility] 02-25-2021 23:10-0400 Systolic blood pressure 108 mm[Hg] Apolinar Tavallaee Other Phone: [facility] 02-25-2021 19:28-0400 Body height 160 cm Apolinar Tavallaee Other Phone: [facility] 02-25-2021 19:28-0400 Body temperature 97.88 [degF] Apolinar Tavallaee Other Phone: [facility] 02-25-2021 19:28-0400 Body weight 50.9 kg Apolinar Tavallaee Other Phone: [facility] Encounters Encounter Date Encounter Type Care Provider Facility Start: 09-22-2022 ambulatory Apolinar Monazz am [place] Facility:[id number] Start: 08-18-2022 ambulatory Apolinar Monazz am [place] Facility:[id number] Start: 08-11-2022 Office outpatient vi sit 25 minutes Apolinar M Tavallaee Work Phone: [facility] Work Phone: Start: 08-11-2022 ambulatory Apolinar Monazz am [place] Facility:[id number] Start: 10-13-2021 ambulatory Apolinar Monazz am [place] Facility:[id number] Start: 06-24-2021 End: 06-24-2021 ambulatory [facility] Start: 04-07-2021 Office outpatient vi sit 15 minutes Apolinar M Tavallaee Work Phone: [facility] Work Phone: Start: 03-06-2021 Chart Update Apolinar M Tava llaee Work Phone: [facility] Work Phone: Start: 03-03-2021 Office outpatient vi sit 25 minutes Apolinar M Tavallaee Work Phone: [facility] Work Phone: Start: 02-25-2021 End: 02-25-2021 Emergency department patient visit Terrell Santos [facility] Emergency Start: 12-09-2018 [facility] Start: 12-09-2018 End: 12-09-2018 Patient encounter procedure Nusrat Willis Work Phone: [facility] Comment on above: Painful breasts Procedures Date Procedure Procedure Detail Performing Clinician Start: 02-25-2021 End: 02-25-2021 EKG impression Jazlyn Briscoe Start: 12-09-2018 Us breast uni real t luciano with image limited Nusrat Willis Work Phone: H/O: surgery Status post lase r lithotripsy of ureteral calculus Apolinar Alas Work Phone: No history of surgery Dwayne Alas Work Phone: Plan of Treatment Date Care Activity Detail Author Start: 08-18-2022 DEEPTHI, Provider : Mary Polo, Status: Pen, Time: 2:00 PM VIRVICTOR HUGO, Provider: Mary Polo, Status: Pen, Time: 2:00 PM [facility] Work Phone: Start: 10-13-2021 FUV, Provider: Apolinar Alas, Status: Pen, Time: 10:00 AM FUV, Provider: Apolinar Alas, Status: Pen, Time: 10:00 AM [facility] Work Phone: Start: 04-07-2021 FUV, Provider: Apolinar Alas, Status: Pen, Time: 2:15 PM FUV, Provider: Apolinar Alas, Status: Pen, Time: 2:15 PM [facility] Work Phone: Start: 03-05-2021 Patient encounter procedure [facility] [place] Start: 02-25-2021 End: 02-26-2022 Sodium Chloride 0.9% IV Bolus 1000 mL IntraVenous Once STAT ; DOSE = 1,000 mL OnceInfuse over 1 hour(s) Start: 25-Feb-2021 End: 25-Feb-2022 Ordered: 25-Feb-2021 Jazlyn Briscoe [facility] Start: 04-23-2018 Influenza vaccinatio n given SEQUENTIAL INFLUENZA VACCINE (#1) [facility] Start: 1995 History and physical examination, annual for health maintenance Wellness Visit [facility] Start: 1992 Screening for malign ant neoplasm of cervix PAP SMEAR [facility] Start: 1992 Tetanus vaccination TETANUS EVERY 10 YR [facility] Payers Date Payer Category Payer Medicaid [id number] 2018 Medicaid [employer] [place] [employer] [place] xxxxxxxxxxxx 2018-Present xxxxxxxxxxxx [id number] 1992 Unknown [id number] 1992 Unknown [id number] 1992 Unknown [id number] 1992 Unknown [id number] 1992 Unknown [id number] 1992 Unknown [id number] Unknown Social History Date Type Detail Facility Tobacco smoking stat [facility] Unknown if ever smoked [facility] Sex Assigned At Not on file [facility] Tobacco smoking consumption unknown [facility] Non-smoker Non-smoker [facility] Work Phone: Chief complaint Narrative - Reported 08-11-2022 Note Date & Type Note Facility 08-11-2022 Chief complaint Narrative - Reported An interactive audio and video telecommunication system which permits real time communications between the patient (at the originating site) and provider (at the distant site) was utilized to provide this telehealth service.Verbal consent was requested and obtained from SOPHIA ALLEN on this date, 08/11/2022 11:00 AM , for a telehealth visit.VIRTUAL- [phone]- PT C/O OF SORE THROAT,RUNNY NOSE,HEADACHE, TEETH HURT X 5 DAYS. NO TEMP. NO V/D. PT SON HAS RSV. PT IS CURRENTLY [facility] Work Phone: Progress note 10-28-2020 Note Date & Type Note Facility 10-28-2020 Note HNO ID: [id number] Author: Kristina Spence MD Service: ? Author Type: Physician Type: Progress Notes Filed: 10/28/2020 1:21 PM Note Text: Female Pelvic Medicine AND Reconstructive Surgery Follow-Up Sophia Allen is a 30 year old female, who presents for a follow-up of recurrent UTI. Last visit 07/22/2020: IMPRESSION: Sophia Allen is a 29 year old female with Recurrent UTI. PLAN: 1. Start Macrodantin 50mg daily for prophylaxis x 3 months 2. Standing order for urine culture placed in [facility]. If Sophia has urinary tract symptoms, she should go to a [facility] lab, leave a urine sample and call or [facility] message me. 3. Will consider adding Ellura (36mg PAC Cranberry pills) or D-mannose if she has break-through UTIs 4. Will also consider CT Abdomen/Pelvis and cystoscopy if patient has breakthrough UTIs 5. Follow-up with me in 3 months History since last visit: Pt has been on 3 months of Macrodantin and denies any UTIs. She thought that she had UTI a few weeks ago but her urine culture was negative and symptoms were more like a yeast infection. Pt reports that she has had more yeast infections while on the antibiotics. She is currently taking D3/K2 which she thinks has helped her symptoms. 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 Kristina Spence MD, MD Plat[place] offered: Patient declines. OBJECTIVE: BP 110/76 Pulse 88 Ht 5' 3 (1.60m) Wt 115 lb (52.2kg) SpO2 98% LMP 10/26/2020 BMI 20.38 kg/(m2). General: Well appearing, alert, in no acute distress, well-hydrated, well nourished. Abdomen: Abdomen soft, non-tender Impression: Sophia Allen is a 30 year old female with Recurrent UTIs. Pt did not have any breakthrough UTIs on antibiotics so do not think that she needs CT Abdomen/Pelvis and cystoscopy. She would like to continue D3/K2 and start probiotics. She will defer cranberry pills, D-mannose or Hiprex for now. Plan: 1. Standing order for urine culture placed in [facility]. If Sophia has urinary tract symptoms, she should go to a [facility] lab, leave a urine sample and call or [facility] message me. 2. If she has more UTIs after finishing course of antibiotics, then will consider adding Ellura (36mg PAC Cranberry pills), D-mannose or Hiprex 3. Will send Diflucan 150mg every 72 hours x 2 doses with refills to pharmacy 4. Follow-up as needed I spent a total of 30 minutes on the date of the service which included preparing to see the patient, [id number] patient care, completing clinical documentation, obtaining and/or reviewing separately obtained history, counseling and educating the patient/family/caregiver and ordering medications, tests, or procedures Kristina Spence MD [facility] Progress note 10-04-2020 Note Date & Type Note Facility 10-04-2020 Note HNO ID: [id number] Author: Chris Hinson Service: ? Author Type: Nurse Practitioner Type: Progress Notes Filed: 10/04/2020 5:11 PM Note Text: Pt submitted urine specimen from standing culture. Results GBS <10,000 CFU/ml Dr. Spence sent My Chart message to pt explaining this is typically not treated unless pt is symptomatic. Pt has not read message. Follow up call placed to pt No answer - VM left for pt to read her My Chart message from Dr. Spence and call our office if she is symptomatic. Pt return call - spoke with RN Reports she has been experiencing dysuria for weeks. Antibiotic script e-rx'd to local pharmacy. [facility] History of Present illness Narrative Note Date & Type Note Facility History of Present illness Narrative HERE FOR F/UDEPRESSION, COULD NOT TOLERATE LEXAPROTACHY CARDIA OFF AND ON NO CPRASH ON ABDOMEN [facility] MD Work Phone: History of Present illness Narrative Note Date & Type Note Facility History of Present illness Narrative HERE FOR F/UDEPRESSION, COULD NOT TOLERATE LEXAPROTACHY CARDIA OFF AND ON NO CPRASH ON ABDOMEN [facility] Work Phone: History of Present illness Narrative Note Date & Type Note Facility History of Present illness Narrative HERE FOR F/U NO COMPLAINT [facility] Work Phone: History of Present illness Narrative Note Date & Type Note Facility History of Present illness Narrative VIRTUAL APPOINTMENT BEING PERFORMED DUE TO COVID-19 (CORONAVIRUS)Presents today for C/O SORE THROAT, RUNNY NOSE, AND HIGH X 5 DAYS. modifying factors consists of HER SON HAS RSV. SHE IS CURRENTLY associated symptoms consist of SINUS PRESSURE. TEETH HURT. N SOB, CP, LOSS OF TASTE OR SMELL. prior treatment consists of medication NONE [facility] Work Phone: Summary Purpose Family History No Family History Records FoundUnknown Family Member Name Dates Details No pertinent family history: Father(V49.89, Z78.9) Status:Active Family history of hypothyroi dism: Mother, Maternal Aunt(V18.19, Z83.49) Status:Active Unknown Family Member Name Dates Details No pertinent family history: Father(V49.89, Z78.9) Status:Active Family history of hypothyroi dism: Mother, Maternal Aunt(V18.19, Z83.49) Status:Active Unknown Family Member Name Dates Details Family history of hypothyroi dism: Mother, Maternal Aunt(V18.19, Z83.49) Status:Active No pertinent family history: Father(V49.89, Z78.9) Status:Active Unknown Family Member Name Dates Details No pertinent family history: Father(V49.89, Z78.9) Status:Active Family history of hypothyroi dism: Mother, Maternal Aunt(V18.19, Z83.49) Status:Active Unknown Family Member Name Dates Details No pertinent family history: Father(V49.89, Z78.9) Status:Active Family history of hypothyroi dism: Mother, Maternal Aunt(V18.19, Z83.49) Status:Active Advance Directives No Advanced Directives Records Found Patient has advance care planning documents on file. For more information, please contact: [place] [address] No Advanced Directives Records FoundNo Advanced Directives Records FoundNo Advanced Directives Records FoundNo Advanced Directives Records FoundNo Advanced Directives Records FoundNo Advanced Directives Records FoundNo Advanced Directives Records Found Reason for Referral Status Reason Specialty Diagnoses / Procedures Referred By Contact Referred To Contact Pending Review Radiology Diagnoses Painful breasts Procedures US Breast Right Limited Nusrat Willis MD [address] [place] [address] Assessments Diagnosis Painful breasts Mastodynia Chief Complaint Pt presents to this office for 2 month f/u lab results. Pt concern for talha areas on body.Pt presents to this office for 2 month f/u lab results. Pt concern for talha areas on body.1 MONTH F/U BARDY1 MONTH F/U BARDY Additional Source Comments INFORMATION SOURCE (unrecogn ized section and content) DATE CREATED AUTHOR 12/10/2018 [facility] DATE CREATED AUTHOR AUTHOR'S ORGANIZ ATION 04/26/2019 [facility] DATE CREATED AUTHOR AUTHOR'S ORGANIZ ATION 03/19/2021 [facility] DATE CREATED AUTHOR AUTHOR'S ORGANIZ ATION 06/26/2021 [facility] DATE CREATED AUTHOR AUTHOR'S ORGANIZ ATION 09/16/2021 [facility] DATE CREATED AUTHOR AUTHOR'S ORGANIZ ATION 10/17/2021 [facility] DATE CREATED AUTHOR AUTHOR'S ORGANIZ ATION 08/18/2022 [employer] DATE CREATED AUTHOR AUTHOR'S ORGANIZ ATION 09/23/2022 [facility] Reason for Visit (unrecogniz ed section and content) Status Reason Specialty Diagnoses / Procedures Referred By Contact Referred To Contact Pending Review Radiology Diagnoses Painful breasts Procedures US Breast Right Limited Nusrat Willis MD [address] [place] [address] <item> Privacy Markings (unrecogniz ed section and content) Section Author: [employer] PROHIBITION ON REDISCLOSURE OF CONFIDENTIAL INFORMATION This notice accompanies a disclosure of information concerning a client made to you with the consent of such client. FOR RECORDS PERTAINING TO PATIENTS WHO ARE OR HAVE BEEN ENROLLED IN A CHEMICAL DEPENDENCY/SUBSTANCEABUSE PROGRAM, SOME INFORMATION MAY BE OMITTED. This clinical summary was aggregated from multiple sources. Caution should be exercised in using it in the provision of clinical care. This summary normalizes information from multiple sources, and as a consequence, information in this document may materially change the coding, format and clinical context of patient data. In addition, data may be omitted in some cases. CLINICAL DECISIONS SHOULD BE BASED ON THE PRIMARY CLINICAL RECORDS. [employer] [facility] provides no warranty or guarantee of the accuracy or completeness of information in this document.
== END | disposition home or self-care (01) ==
LOC: US 08:13
PROVIDERS: PCP Internal Medicine; Referring Provider Advanced Practice Midwife; Visit Provider Advanced Practice Midwife
DX: R10.2 Pelvic and perineal pain (principal)
CPT/HCPCS: 76830